=== PATIENT | male | born 1955 | race Caucasian/White ===

== ENCOUNTER → 2017-09-24 | Outpatient (CLI) | payer OTHER ==
[~2017-09-24] MED LIST: ASPI-320 PO; CMD5 PO; DIPH25CA5 PO; DVN80 PO; LOSA1TAB PO; SIMV10TA2 PO; SIMV10TA5 PO; WARF5TAB7 PO
[2017-09-24 14:45] LABS: INR 1.4 (0.9-1.1)
== END | disposition home or self-care (01) ==
LOC: C.LAB1850 13:37
PROVIDERS: ATTEND Internal Medicine
DX: I25.10 Atherosclerotic heart disease of native coronary artery without angina pectoris (principal)

== ENCOUNTER → 2017-10-21 | Outpatient (CLI) | payer OTHER ==
[~2017-10-21] MED LIST changes: +ASPEC81 PO; -ASPI-320 PO; -CMD5 PO; -DVN80 PO; -SIMV10TA2 PO
[2017-10-21 10:51] LABS: INR 1.2 (0.9-1.1)
== END | disposition home or self-care (01) ==
LOC: C.LAB1850 09:09
PROVIDERS: ATTEND Internal Medicine
DX: I82.4Z9 Acute embolism and thrombosis of unspecified deep veins of unspecified distal lower extremity (principal)

== ENCOUNTER 2021-04-24 12:07 | Inpatient (IN) ==
[2021-04-24] MEDS ORDERED: TICAGRELOR 90 MG TAB PO ONE ×2 (12:15→12:16)
[2021-04-24] MEDS ORDERED: HEPARIN SOD (PORCINE) 1000 UNIT/ML IV ONE (12:15)
[2021-04-24] MEDS ORDERED: HEPARIN SOD (PORCINE) 1000 UNIT/ML ONE ×2 (12:16)
[2021-04-24] MEDS ORDERED: CLOPIDOGREL BISULFATE 300 MG TAB ONE (12:18)
[2021-04-24] MEDS ORDERED: SODIUM CHLORIDE 0.9% 1000ML 500 ML IV ONE (12:20)
[2021-04-24] MEDS ORDERED: HEPARIN (PORCINE) 1000 UNIT/ML 10 ML (CATH LAB USE ONLY) ONE (12:24)
[2021-04-24] MEDS ORDERED: niCARdipine HCL INJ 2.5 MG/ML 10 ML AMP ONE (12:24)
[2021-04-24] MEDS ORDERED: fentaNYL citrate 100 MCG/2 ML VIAL ONE (12:24)
[2021-04-24] MEDS ORDERED: MIDAZOLAM HCL 1 MG/ML 2ML VIAL ONE (12:24)
[2021-04-24] MEDS ORDERED: NITROGLYCERIN/D5W 100MCG/ML 20ML SYR ONE (12:25)
[2021-04-24 12:28] LABS: Basophils # (auto) 0.02 K/uL (0-0.2); Basophils % (auto) 0.2 %; Eosinophils # (auto) 0.23 K/uL (0-0.5); Eosinophils % (auto) 2.3 %; Hematocrit (blood only) 48.2 % (42-52); Hemoglobin 16.5 g/dL (14.0-18.0); Immature Granulocytes # (auto) 0.02 K/uL (0.00-0.02); Immature Granulocytes % (auto) 0.2 %; Lymphocytes % (auto) 42.5 %; Mean Corpuscular Hemoglobin 34.2 pg (25-34); Mean Corpuscular Hgb Conc 34.2 g/dL (32-36); Mean Corpuscular Volume 99.8 fL (80-100); Mean Platelet Volume 9.8 fL (7.4-10.4); Monocytes # (auto) 0.93 K/uL (0.11-0.59); Monocytes % (auto) 9.4 %; Neutrophils # (auto) 4.48 K/uL (1.4-6.5); Neutrophils % (auto) 45.4 %; Platelet Count 293 K/uL (130-400); RDW Coefficient of Variation 13.6 % (11.5-14.5); Red Blood Count 4.83 M/uL (4.7-6.1); White Blood Count 9.88 K/uL (4.8-10.8)
[2021-04-24] MEDS ORDERED: ONDANSETRON INJ 2 MG/ML 2 ML VIAL ONE (12:30)
--- NOTE | 2021-04-24 12:30 | XRay Report ---
XR chest 1V portable HISTORY: 66 years-old Male Chest Pain acute atypical chest pain COMPARISON: Chest radiograph 12/14/2015 TECHNIQUE: Portable AP view of the chest FINDINGS: Cardiac silhouette is enlarged. Pulmonary vascular congestion with reticular interstitial opacities. No pneumothorax or large pleural effusion. Degenerative changes of the shoulders and spine. IMPRESSION: Cardiomegaly with pulmonary vascular congestion. ACT 112: Negative or not required by law. The above report was generated using voice recognition software. It may contain grammatical, syntax o r spelling errors. Electronically signed by: Harman Rhodes M.D. 04/24/2021 12:29 PM
[2021-04-24] MEDS ORDERED: NOREPINEPHRINE BITARTRATE 1 MG/ML 4 ML VIAL IV ONE (12:36)
[2021-04-24 12:39] LABS: INR 2.1 (0.9-1.1); Partial Thromboplastin Ratio 1.1; Partial Thromboplastin Time 29.9 Seconds (21.0-31.0); Prothrombin Time 20.3 Seconds (9.0-12.0)
--- NOTE | 2021-04-24 12:40 | Emergency Department Note ---
Impression & Plan Acute ST elevation myocardial infarction (STEMI) of inferior wall, Chest pain ED Provider Note NAME: SALENA THORNTON AGE: 66 SEX: M : 1955 ARRIVES VIA: Ambulance INFORMANT: Patient, ED PROVIDER(S): Trevon Moise DO CHIEF COMPLAINT: Chest pain HPI: The patient is a 66-year-old male who presented to the emergency department for an evaluation of chest pain. The patient arrived via ambulance. I received a prehospital notification about this patient. The patient was made a heart alert prior to arrival. The patient states he was having chest pain while he was on the elliptical machine at the gym. The chest pain was anterior and also on the right side. He describes as a pressure. The pain was associated with diaphoresis and shortness of breath. The patient was given aspirin and nitroglycerin prior to arrival. The patient states his pain is mildly improved. He rates it a 5 out of 10 at this point. He did have a similar episode last evening. He states that episode did not last very long and resolved spontaneously. The patient denies having any nausea or vomiting. He denies having any lower extremity swelling. He does have a history of DVT approximately 10 years ago. He does take Coumadin. He states he has been compliant with his outpatient medication regimen. He did not have a cardiac history but has a strong family history. He did have a cardiac catheterization about 10 years ago but had no culprit lesion that required stenting. ROS: See above HPI for pertinent positives & negatives. A total of 10 systems reviewed and were otherwise negative. PAST MEDICAL HISTORY: See Below PAST SURGICAL HISTORY: See Below FAMILY HISTORY: See Below SOCIAL HISTORY: See Below HOME MEDICATIONS: See Below ALLERGIES: See Below VITALS: See Below PHYSICAL EXAMINATION: GENERAL: The patient is awake and alert. The patient is very anxious appearing and appears to be uncomfortable. EYES: The conjunctivae are clear. The pupils are round and reactive. EARS, NOSE, MOUTH AND THROAT: The nose is without any evidence of any deformity. NECK: The neck is nontender and supple. RESPIRATORY: Diminished breath sounds are noted at both bases. There were faint rales at both bases. CARDIOVASCULAR: Regular rate and rhythm noted there no murmurs rubs or gallops normal S1 normal S2. GASTROINTESTINAL: The abdomen is soft. Abdomen is nontender. MUSCULOSKELETAL/EXTREMITIES: There is no evidence of gross deformity full range of motion is noted in the hips and shoulders. SKIN: Trace pedal edema was noted bilaterally. Skin was cool and diaphoretic. NEUROLOGIC: Patient is awake alert and oriented x3. MEDICAL DECISION MAKING: The patient is a 66-year-old male who presented to the emergency department by ambulance for an evaluation of chest pain. The patient was exercising when he had an acute onset of chest pain. He was very diaphoretic upon arrival to the emergency department. EKG appeared to be consistent with an acute inferior wall ST segment elevation DE. The patient was made a heart alert prior to arrival. He was taken directly to the [facility] [facility]. He was treated with heparin in the emergency department. He was given aspirin and nitroglycerin prior to arrival. Upon evaluation by the sheet tailer the patient was felt to be a candidate for interventional therapy. He was also ordered Plavix by the sheet tailer. He was reevaluated multiple times. Pain significantly proved while he was in the emergency department but continued to be present. Triage Nursing notes reviewed. Prior medical records reviewed Vital Signs: reviewed and remarkable for elevated blood pressure Differential diagnosis: Cardiac ischemia, aortic dissection, pulmonary embolism, pneumothorax, pneumonia, pericarditis, myocarditis, esophageal rupture, GERD, cholecystitis, pancreatitis, musculoskeletal, as well as other pathologies. ER treatment provided: See below Diagnostics interpreted by me: ECG: EKG was obtained in the emergency department. My interpretation is normal sinus rhythm at 82 bpm. There were no ectopy. Acute ST segment elevations were noted in the inferior and low lateral leads. Reciprocal changes were noted in the high lateral leads. This was compared to a tracing from December [id number]. The ST segment changes are new compared to the previous tracing. A prehospital EKG was also evaluated. My interpretation is normal sinus rhythm at 79 bpm. There is no ectopy. Acute ST segment elevations were noted in the inferior and low lateral leads. Reciprocal changes were noted in the high lateral leads. Cardiac Monitoring: An order was placed for continuous cardiac monitoring. The monitor shows a rate of 73 bpm with sinus rhythm. Laboratory studies: As stated above and show below. Imaging studies: See below Consultation(s): Dr. Salazar presented to the emergency department to evaluate the patient for the heart alert. The patient was given heparin bolus as well as Plavix load at the request of the sheet tailer. ED COURSE: Procedures: none PDMP:reviewed and no issues Critical Care: I have personally spent greater than 35 minutes of critical care time in the direct management of this patient. This includes bedside care, interpretation of diagnostic studies, and testing, discussion with consultants, patient, and family members, and other required patient management activities. This 35 minutes is in excess of all separately billable procedures. Past Med/Surg History Medical History CAD (coronary artery disease) Cerebral atherosclerosis Depression DVT (deep venous thrombosis) APPROX 5 YEARS AGO, POSSIBLY R/T TRAVELING Dysmetabolic syndrome X Hyperlipidemia Hypertension Insomnia Obesity Surgical History (Updated 04/24/21 @ 13:56 by Evans Ortiz MD) H/O wisdom tooth extraction History of cardiac cath History of total knee replacement B/L Family History Grandmother Cancer Father Acute myocardial infarction Hypertension Mother Acute myocardial infarction Brother Hypertension Other Myocardial infarction Denies family history of Ovarian cancer Prostate cancer Breast cancer Colorectal cancer Social History Smoking Status: Current every day smoker Tobacco Type: Cigars Cigarettes Per Day: 1 CIGAR PER DAY; Second Hand Exposure: No; Hx Alcohol Use: Yes Alcohol type: other Hx Substance Use: No Preferred Language: Bengali Communication Ability: Effective Cinder Block Maker Required: No Beliefs That Will Affect Care: None Current Living Situation: Spouse Feels Safe at Home: Yes Safety Concerns: Feels Safe At This Time Dental Care, Regularly: No Physical Activity Frequency: 1-2 Times per Week Seatbelt Use: always Assistive Devices: Glasses and Hearing Aid - Bilateral Allergies Allergies Allergy/AdvReac Type Severity Reaction Status Date / Time Sulfa (Sulfonamide Allergy Mild ?RX, WAS Verified 04/19/21 08:56 Antibiotics) TOLD CHILD Home Meds Previous Rx's Medication Instructions Recorded olmesartan 20 mg tablet 20 mg PO DAILY #30 tab 04/19/21 semaglutide (Ozempic) 0.25 mg SUBCUT ONCE #1.5 ml 04/19/21 simvastatin 20 mg tablet 20 mg PO HS #90 tab 04/19/21 tamsulosin 0.4 mg capsule (Flomax) 0.4 mg PO DAILY #30 cap 04/19/21 warfarin 5 mg tablet 5 mg PO DAILY #35 tab 04/19/21 Results & Data (ED) Vital Signs Vital Signs - 24 hr 04/24/21 12:10 04/24/21 12:21 04/24/21 12:25 Temperature 36.9 C Temperature Source Oral Pulse Rate 79 Pulse Rate [Apical] 80 Pulse Rhythm [Apical] Pulse Strength [Apical] Respiratory Rate 16 16 Respiratory Effort / Characteristics Respiratory Depth Respiratory Pattern Blood Pressure 109/65 Blood Pressure [Left Arm] 102/56 L Blood Pressure Mean 79 Blood Pressure Mean [Left Arm] 71 Blood Pressure Position [Left Arm] Pulse Oximetry 98 99 98 Oxygen Delivery Method Room Air Nasal Cannula Nasal Cannula Oxygen Flow Rate 2 2 Sepsis Recent Fever Within 48 Hours No Sepsis New/Unexplained Change in Mental Status N/A Sepsis Action Taken by Nursing No Action Required 04/24/21 13:04 04/24/21 13:15 04/24/21 13:30 Temperature Temperature Source Pulse Rate Pulse Rate [Apical] 82 80 86 Pulse Rhythm [Apical] Regular Regular Regular Pulse Strength [Apical] Normal Normal Normal Respiratory Rate 16 16 16 Respiratory Effort / Characteristics Non-Labored Non-Labored Non-Labored Respiratory Depth Normal Normal Normal Respiratory Pattern Regular Regular Regular Blood Pressure Blood Pressure [Left Arm] 119/92 127/89 114/74 Blood Pressure Mean Blood Pressure Mean [Left Arm] 101 101 87 Blood Pressure Position [Left Arm] Lying Lying Lying Pulse Oximetry 98 99 98 Oxygen Delivery Method Room Air Room Air Room Air Oxygen Flow Rate Sepsis Recent Fever Within 48 Hours Sepsis New/Unexplained Change in Mental Status Sepsis Action Taken by [facility] Medications Current Medication List: was personally reviewed by me Laboratory Data Attestation: I reviewed the patient's lab results. Result diagrams: 04/24/21 12:16 04/24/21 12:16 Lab Results 04/24/21 04/24/21 04/24/21 Range/Units 12:16 12:16 12:16 WBC 9.88 (4.8-10.8) K/uL RBC 4.83 (4.7-6.1) M/uL Hgb 16.5 (14.0-18.0) g/dL Hct 48.2 (42-52) % MCV 99.8 (80-100) fL MCH 34.2 H (25-34) pg MCHC 34.2 (32-36) g/dL RDW Std Deviation 50.0 H (36.4-46.3) fL RDW Coeff of Karely 13.6 (11.5-14.5) % Plt Count 293 (130-400) K/uL MPV 9.8 (7.4-10.4) fL Immature Gran % (Auto) 0.2 % Neut % (Auto) 45.4 % Lymph % (Auto) 42.5 % Bartholomew % (Auto) 9.4 % Eos % (Auto) 2.3 % Baso % (Auto) 0.2 % Neut # (Auto) 4.48 (1.4-6.5) K/uL Lymph # (Auto) 4.20 H (1.2-3.4) K/uL Bartholomew # (Auto) 0.93 H (0.11-0.59) K/uL Eos # (Auto) 0.23 (0-0.5) K/uL Baso # (Auto) 0.02 (0-0.2) K/uL Immature Gran # (Auto) 0.02 (0.00-0.02) K/uL PT 20.3 H (9.0-12.0) Seconds INR 2.1 H (0.9-1.1) APTT 29.9 (21.0-31.0) Seconds PTT Ratio 1.1 Sodium 138 (136-145) mmol/L Potassium 3.9 (3.5-5.1) mmol/L Chloride 108 H (98-107) mmol/L Carbon Dioxide 21 (21-32) mmol/L Anion Gap 9.0 (3-11) BUN 23 H (7-18) mg/dl Creatinine 1.20 (0.6-1.4) mg/dl Est Cr Clr Drug Dosing 82.8 ml/min Est GFR ( Amer) 71.6 ml/min Est GFR (Non-Af Amer) 61.8 ml/min BUN/Creatinine Ratio 19.4 (10-20) Glucose 141 H (70-99) mg/dl Calcium 9.6 (8.5-10.1) mg/dl Total Bilirubin 0.6 (0.2-1) mg/dl AST 28 (15-37) U/L ALT 32 (12-78) U/L Alkaline Phosphatase 82 (45-117) U/L Troponin I 0.756 H* (0-0.045) ng/ml Total Protein 7.2 (6.4-8.2) gm/dl Albumin 3.3 L (3.4-5.0) gm/dl Globulin 3.9 (2.5-4.0) gm/dl Albumin/Globulin Ratio 0.8 L (0.9-2) Lipase 122 (73-393) U/L COVID-19 Eval Order SARS-CoV-2 (PCR) (Negative) 04/24/21 04/24/21 Range/Units 12:16 12:16 WBC (4.8-10.8) K/uL RBC (4.7-6.1) M/uL Hgb (14.0-18.0) g/dL Hct (42-52) % MCV (80-100) fL MCH (25-34) pg MCHC (32-36) g/dL RDW Std Deviation (36.4-46.3) fL RDW Coeff of Karely (11.5-14.5) % Plt Count (130-400) K/uL MPV (7.4-10.4) fL Immature Gran % (Auto) % Neut % (Auto) % Lymph % (Auto) % Bartholomew % (Auto) % Eos % (Auto) % Baso % (Auto) % Neut # (Auto) (1.4-6.5) K/uL Lymph # (Auto) (1.2-3.4) K/uL Bartholomew # (Auto) (0.11-0.59) K/uL Eos # (Auto) (0-0.5) K/uL Baso # (Auto) (0-0.2) K/uL Immature Gran # (Auto) (0.00-0.02) K/uL PT (9.0-12.0) Seconds INR (0.9-1.1) APTT (21.0-31.0) Seconds PTT Ratio Sodium (136-145) mmol/L Potassium (3.5-5.1) mmol/L Chloride (98-107) mmol/L Carbon Dioxide (21-32) mmol/L Anion Gap (3-11) BUN (7-18) mg/dl Creatinine (0.6-1.4) mg/dl Est Cr Clr Drug Dosing ml/min Est GFR ( Amer) ml/min Est GFR (Non-Af Amer) ml/min BUN/Creatinine Ratio (10-20) Glucose (70-99) mg/dl Calcium (8.5-10.1) mg/dl Total Bilirubin (0.2-1) mg/dl AST (15-37) U/L ALT (12-78) U/L Alkaline Phosphatase (45-117) U/L Troponin I (0-0.045) ng/ml Total Protein (6.4-8.2) gm/dl Albumin (3.4-5.0) gm/dl Globulin (2.5-4.0) gm/dl Albumin/Globulin Ratio (0.9-2) Lipase (73-393) U/L COVID-19 Eval Order Covid19 at [facility] SARS-CoV-2 (PCR) NEGATIVE (Negative) Administered Medications Sodium Chloride (Nss 1000ml) 1,000 mls @ 75 mls/hr IV .[id number] [facility] Stop: 05/24/21 13:44 Last Admin: 04/24/21 16:23 Dose: 75 mls/hr Documented by: [id number] Discontinued Medications Atropine Sulfate (Atropine Sulfate 0.1 Mg/Ml 10ml Syr) Confirm Administered Dose 1 mg IV .STK-MED ONE Stop: 04/24/21 12:43 Last Admin: 04/24/21 13:21 Dose: Not Given Documented by: [id number] Clopidogrel Bisulfate (Clopidogrel Bisulfate 300 Mg Tab) Confirm Administered Dose 600 mg .ROUTE .STK-MED ONE Stop: 04/24/21 12:19 Last Admin: 04/24/21 12:19 Dose: 600 mg Documented by: [id number] Eptifibatide (Eptifibatide 2 Mg/Ml 10 Ml Vial ([employer] Use Only)) Confirm Administered Dose 40 mg IV .STK-MED ONE Stop: 04/24/21 12:53 Last Admin: 04/24/21 13:23 Dose: 11.3 ml Documented by: [id number] Eptifibatide (Eptifibatide 0.75 Mg/Ml 75mg Vial ([employer] Use Only)) Confirm Administered Dose 75 mg .ROUTE .STK-MED ONE Stop: 04/24/21 12:53 Last Admin: 04/24/21 13:23 Dose: Not Given Documented by: [id number] Fentanyl Citrate (Fentanyl Citrate 100 Mcg/2 Ml Vial) Confirm Administered Dose 100 mcg .ROUTE .STK-MED ONE Stop: 04/24/21 12:25 Last Admin: 04/24/21 13:20 Dose: Not Given Documented by: [id number] Heparin Sodium (Porcine) (Heparin Sod (Porcine) 1000 Unit/Ml) Confirm Administered Dose 1,000 units .ROUTE .STK-MED ONE Stop: 04/24/21 12:17 Last Admin: 04/24/21 13:24 Dose: Not Given Documented by: [id number] Heparin Sodium (Porcine) (Heparin Sod (Porcine) 1000 Unit/Ml) 5,000 units IV NOW ONE Stop: 04/24/21 12:16 Last Admin: 04/24/21 13:24 Dose: Not Given Documented by: [id number] Heparin Sodium (Porcine) (Heparin Sod (Porcine) 1000 Unit/Ml) Confirm Administered Dose 1,000 units .ROUTE .ST-MED ONE Stop: 04/24/21 12:17 Last Admin: 04/24/21 13:24 Dose: Not Given Documented by: [id number] Heparin Sodium (Porcine) (Heparin (Porcine) 1000 Unit/Ml 10 Ml ([employer] Use Only)) Confirm Administered Dose 10,000 units .ROUTE .ST-MED ONE Stop: 04/24/21 12:25 Last Admin: 04/24/21 13:24 Dose: Not Given Documented by: [id number] Heparin Sodium/Sodium Chloride (Heparin In Nss Infusion 1000 Unit/500 Ml (2 U/Ml) Bag) Confirm Administered Dose 3,000 units IV .ST-MED ONE Stop: 04/24/21 12:26 Last Admin: 04/24/21 13:23 Dose: 3,000 units Documented by: [id number] Sodium Chloride (Nss 1000ml) 500 mls @ 999 mls/hr IV .Q31M ONE Stop: 04/24/21 12:50 Last Admin: 04/24/21 16:23 Dose: Not Given Documented by: [id number] Lidocaine HCl (Lidocaine 2% 20 Mg/Ml 5 Ml Syr) Confirm Administered Dose 100 mg IV .STK-MED ONE Stop: 04/24/21 12:45 Last Admin: 04/24/21 13:21 Dose: 100 mg Documented by: [id number] Midazolam HCl (Midazolam Hcl 1 Mg/Ml 2ml Vial) Confirm Administered Dose 2 mg .ROUTE .STK-MED ONE Stop: 04/24/21 12:25 Last Admin: 04/24/21 13:20 Dose: Not Given Documented by: [id number] Nicardipine HCl (Nicardipine Hcl Inj 2.5 Mg/Ml 10 Ml Amp) Confirm Administered Dose 25 mg .ROUTE .[employer] ONE Stop: 04/24/21 12:25 Last Admin: 04/24/21 13:20 Dose: Not Given Documented by: [id number] Nitroglycerin/Dextrose (Nitroglycerin/D5w 100mcg/Ml 20ml Syr) Confirm Administered Dose 2,000 mcg .ROUTE .[employer] ONE Stop: 04/24/21 12:26 Last Admin: 04/24/21 13:23 Dose: Not Given Documented by: [id number] Norepinephrine Bitartrate (Norepinephrine Bitartrate 1 Mg/Ml 4 Ml Vial) Confirm Administered Dose 8 mg IV .[facility] ONE Stop: 04/24/21 12:37 Last Admin: 04/24/21 16:23 Dose: Not Given Documented by: [id number] Ondansetron HCl (Ondansetron Inj 2 Mg/Ml 2 Ml Vial) Confirm Administered Dose 4 mg .ROUTE .[facility] ONE Stop: 04/24/21 12:31 Last Admin: 04/24/21 13:20 Dose: 4 mg Documented by: [id number] Ticagrelor (Ticagrelor 90 Mg Tab) Confirm Administered Dose 180 mg PO .[facility] ONE Stop: 04/24/21 12:16 Last Admin: 04/24/21 12:17 Dose: Not Given Documented by: [id number] Ticagrelor (Ticagrelor 90 Mg Tab) Confirm Administered Dose 180 mg PO .[facility] ONE Stop: 04/24/21 12:17 Last Admin: 04/24/21 12:19 Dose: Not Given Documented by: [id number] Imaging Data Radiologist's Impression: Chest X-Ray 04/24/21 12:10 XR chest 1V portable HISTORY: 66 years-old Male Chest Pain acute atypical chest pain COMPARISON: Chest radiograph 12/14/2015 TECHNIQUE: Portable AP view of the chest FINDINGS: Cardiac silhouette is enlarged. Pulmonary vascular congestion with reticular interstitial opacities. No pneumothorax or large pleural effusion. Degenerative changes of the shoulders and spine. IMPRESSION: Cardiomegaly with pulmonary vascular congestion. ACT 112: Negative or not required by law. The above report was generated using voice recognition software. It may contain grammatical, syntax or spelling errors. Electronically signed by: Harman Rhodes M.D. 04/24/2021 12:29 PM Discharge Plan Visit Data Chief Complaint: Heart Alert ED Provider: Trevon Moise Discharge Problem: Acute ST elevation myocardial infarction (STEMI) of inferior wall, Chest pain Patient Disposition: Admitted As Inpatient Condition: Good Discharge Instructions Interventions: ED Discharge Assessment Last Done: 04/24/21 12:31 Discharge Problem: Chest pain Qualifiers: Chest pain type: unspecified Qualified Code(s): R07.9 - Chest pain, unspecified
--- NOTE | 2021-04-24 12:41 | Cardiology Consultation ---
Date of Consultation April 24, 2021 Assessment & Plan (1) ST elevation (STEMI) myocardial infarction: (2) CAD (coronary artery disease): (3) Hypertension: (4) Hyperlipidemia: (5) Anticoagulant long-term use: ASSESSMENT/PLAN: 1. STEMI: Suspect RCA STEMI based on ECG findings. Recommended emergent cardiac catheterization. Risks and benefits were discussed with him in detail. He was agreeable to undergo the procedure. Recommended Plavix 600 mg daily as he is also on warfarin. Discussed heparin but held off as INR was not yet resulted. Did not administer further nitroglycerin given hypotension after first dose. Will initiate oral beta-elizabeth if blood pressure allows. On ARB. Recommend echo. 2. CAD: CAD noted in 2009. Recommend anti-platelet therapy. Recommend high- dose statin therapy in place of simvastatin. Beta-elizabeth as noted. Continue ARB. 3. Hypertension: Blood pressure was hypotensive following nitroglycerin. If blood pressure allows, will initiate beta-elizabeth during this hospital stay. 4. Dyslipidemia: LDL not optimized. Recommend atorvastatin [address] of simvastatin. 5. Anticoagulation therapy: On anticoagulation therapy as per his PCP. He is on anticoagulation therapy for recurrent DVT. 6. Disposition: Cardiology will follow along. Recommended emergent cardiac catheterization. Patient care discussed with emergency department physician, Dr. Moise. Presentation/patient care also discussed with interventional card iologist. 40 minutes of critical care time spent including counseling patient, coordinating care, assistance in managing acute STEMI, chart review. Thank you for allowing me to participate in the care of your patient. Please call for any other questions or concerns. Sincerely, Giovanny Salazar M.D. History of Present Illness Reason for Consultation: Heart Alert Requesting Physician: Jose Maria Attending Physician: Jose Maria History of Present Illness Mr. Fagan is a pleasant 66-year-old gentleman with history significant for CAD, hypertension, dyslipidemia, and DVT on anticoagulation therapy. He has had the following studies/procedures: 1. Cardiac catheterization 10/13/2009 [facility]: Proximal LAD 30%. Mid LAD 30% and 20%. Distal circumflex 100%. OM 2 ostial 50-60%. Dominant RCA. Mid RCA minor irregularity. Medical therapy recommended. On 04/23/2021, he developed an episode of chest discomfort that resolved spontaneously within approximately 10-15 minutes. Then while exercising this morning, he developed chest discomfort just right of the sternum with associated diaphoresis and shortness of breath. EMS administered aspirin and nitroglycerin which improved his pain to approximately level 4 of 10. ECG demonstrated inferolateral ST elevation with sinus rhythm. After nitroglycerin, his blood pressure became hypotensive with systolic in the 90s. Code heart alert was initiated pre hospital. He was examined in the emergency department immediately after arrival. He continued to have chest discomfort as above. He continued to feel short of breath with diaphoresis. He denied nausea (but apparently developed nausea after interview), vomiting, syncope, or palpitations. He denies melena, hematochezia, or hematuria. He has not had pain like this in the past. He recalled having cardiac catheterization many years ago as noted above, but did not recall any significant stenosis. He does not follow with Cardiology on a regular basis but has been seen in the office many years ago by another provider. Review of systems: As above. Review of systems otherwise negative/unremarkable. Family history: Not assessed in this emergent situation. Social history: Smokes cigars. Lives alone. Has 1 son who lives out of state. Allergies Allergy/AdvReac Type Severity Reaction Status Date / Time Sulfa (Sulfonamide Allergy Mild ?RX, WAS Verified 04/19/21 08:56 Antibiotics) TOLD CHILD Home Medications Medication Instructions Recorded Confirmed Type olmesartan 20 mg tablet 20 mg PO DAILY #30 tab 04/19/21 04/19/21 Rx semaglutide (Ozempic) 0.25 mg SUBCUT ONCE #1.5 ml 04/19/21 04/19/21 Rx simvastatin 20 mg tablet 20 mg PO HS #90 tab 04/19/21 04/19/21 Rx tamsulosin 0.4 mg capsule (Flomax) 0.4 mg PO DAILY #30 cap 04/19/21 04/19/21 Rx warfarin 5 mg tablet 5 mg PO DAILY #35 tab 04/19/21 04/19/21 Rx Patient History Medical History CAD (coronary artery disease) Cerebral atherosclerosis Depression DVT (deep venous thrombosis) APPROX 5 YEARS AGO, POSSIBLY R/T TRAVELING Dysmetabolic syndrome X Hyperlipidemia Hypertension Insomnia Obesity Surgical History H/O wisdom tooth extraction History of cardiac cath History of total knee replacement B/L Family History Grandmother Cancer Father Acute myocardial infarction Hypertension Mother Acute myocardial infarction Brother Hypertension Other Myocardial infarction Denies family history of Ovarian cancer Prostate cancer Breast cancer Colorectal cancer Social History Smoking Status: Light tobacco smoker Tobacco Type: Cigars Cigarettes Per Day: 1 CIGAR PER DAY; Second Hand Exposure: No; Hx Alcohol Use: Yes Alcohol type: other Hx Substance Use: No Preferred Language: Spanish Communication Ability: Effective Clothing Consultant Required: No Beliefs That Will Affect Care: None Current Living Situation: Spouse Feels Safe at Home: Yes Dental Care, Regularly: No Physical Activity Frequency: 1-2 Times per Week Seatbelt Use: always Assistive Devices: Glasses and Hearing Aid - Bilateral Physical Exam Physical Exam: Gen.: Diaphoretic. Alert and oriented. HEENT: Anicteric sclera. Neck: Thick neck. Cardiac: PMI was nonpalpable. No ventricular heave. Regular. Normal S1-S2. No murmurs, rubs, or gallops. Pulmonary: Clear to auscultation bilaterally without wheezes, rales, or rhonchi. Abdomen: Soft, nontender, nondistended, with normoactive bowel sounds. No bruits noted. Extremities: 1+ radial pulses bilaterally. 1+ posterior tibialis pulses bilaterally. No edema or cyanosis. Results & Data ([facility]) Vital Signs (Past 12 Hours) Vital Signs Temp Pulse Pulse Resp BP BP Pulse Ox 04/24/21 12:25 98 04/24/21 12:21 80 16 102/56 L 99 04/24/21 12:10 36.9 C 79 16 109/65 98 Laboratory Results Laboratory Results - last 24 hr 04/24/21 04/24/21 04/24/21 12:16 12:16 12:16 WBC 9.88 RBC 4.83 Hgb 16.5 Hct 48.2 MCV 99.8 MCH 34.2 H MCHC 34.2 RDW Std Deviation 50.0 H RDW Coeff of Kare[place] 13.6 Plt Count 293 MPV 9.8 Immature Gran % (Auto) 0.2 Neut % (Auto) 45.4 Lymph % (Auto) 42.5 [place] % (Auto) 9.4 Eos % (Auto) 2.3 Baso % (Auto) 0.2 Neut # (Auto) 4.48 Lymph # (Auto) 4.20 H [place] # (Auto) 0.93 H Eos # (Auto) 0.23 Baso # (Auto) 0.02 Immature Gran # (Auto) 0.02 PT 20.3 H INR 2.1 H APTT 29.9 PTT Ratio 1.1 Sodium 138 Potassium 3.9 Chloride 108 H Carbon Dioxide 21 Anion Gap 9.0 BUN 23 H Creatinine 1.20 Est Cr Clr Drug Dosing 82.8 Est GFR ( Amer) 71.6 Est GFR (Non-Af Amer) 61.8 BUN/Creatinine Ratio 19.4 Glucose 141 H Calcium 9.6 Total Bilirubin 0.6 AST 28 ALT 32 Alkaline Phosphatase 82 Troponin I 0.756 H* Total Protein 7.2 Albumin 3.3 L Globulin 3.9 Albumin/Globulin Ratio 0.8 L Lipase 122 COVID-19 Eval Order SARS-CoV-2 (PCR) 04/24/21 04/24/21 12:16 12:16 WBC RBC Hgb Hct MCV MCH MCHC RDW Std Deviation RDW Coeff of Kare[place] Plt Count MPV Immature Gran % (Auto) Neut % (Auto) Lymph % (Auto) [place] % (Auto) Eos % (Auto) Baso % (Auto) Neut # (Auto) Lymph # (Auto) [place] # (Auto) Eos # (Auto) Baso # (Auto) Immature Gran # (Auto) PT INR APTT PTT Ratio Sodium Potassium Chloride Carbon Dioxide Anion Gap BUN Creatinine Est Cr Clr Drug Dosing Est GFR ( Amer) Est GFR (Non-Af Amer) BUN/Creatinine Ratio Glucose Calcium Total Bilirubin AST ALT Alkaline Phosphatase Troponin I Total Protein Albumin Globulin Albumin/Globulin Ratio Lipase COVID-19 Eval Order Covid19 [address] [facility] SARS-CoV-2 (PCR) Pending Diagnostic Findings ECG personally reviewed as noted above in HPI demonstrated sinus rhythm with inferolateral ST elevation. Previous cardiac catheterization report reviewed as noted above in HPI. Medications Administered Received full-dose aspirin pre-hospital. Receive nitroglycerin pre-hospital. PG Care Time/CCT Total # of Minutes Spent Total Time Spent with Patient: Total time spent is greater than 50% in c oordination of care (as documented) at patient's floor/unit and/or counseling patient: Critical Care Time: Yes Total Critical Care Time: 40 Coding Level of Care Code None Diagnoses CAD (coronary artery disease) I25.10 ST elevation (STEMI) myocardial infarction I21.3 Hypertension I10 Hyperlipidemia E78.5 Anticoagulant long-term use Z79.01 Additional Codes Critical Care Time - Critical Care Time: Yes ([id number]) Time Spent (min) 40 Comment [id number]
[2021-04-24] MEDS ORDERED: ATROPINE SULFATE 0.1 MG/ML 10ML SYR IV ONE (12:42)
[2021-04-24] MEDS ORDERED: LIDOCAINE 2% 20 MG/ML 5 ML SYR IV ONE (12:44)
[2021-04-24 12:45] LABS: Albumin Level 3.3 gm/dl (3.4-5.0); BUN Creatinine Ratio 19.4 (10-20); Calcium 9.6 mg/dl (8.5-10.1); Creatinine Clr Calc Pharmacy 82.8 ml/min; Est GFR (African American) 71.6 ml/min; Est GFR (Non-African American) 61.8 ml/min; Potassium 3.9 mmol/L (3.5-5.1)
[2021-04-24] MEDS ORDERED: EPTIFIBATIDE 2 MG/ML 10 ML VIAL (CATH LAB USE ONLY) IV ONE (12:52)
[2021-04-24] MEDS ORDERED: EPTIFIBATIDE 0.75 MG/ML 75MG VIAL (CATH LAB USE ONLY) ONE (12:52)
[2021-04-24 12:59] LABS: Albumin Globulin Ratio 0.8 (0.9-2); Bilirubin,Total 0.6 mg/dl (0.2-1); Globulin 3.9 gm/dl (2.5-4.0); Total Protein 7.2 gm/dl (6.4-8.2); Troponin I 0.756 ng/ml (0-0.045)
[2021-04-24] MEDS ORDERED: ICU PROTOCOL FOR HYPERGLYCEMIA PRN (13:42)
--- NOTE | 2021-04-24 13:42 | Cardiac Catheterization ---
[facility] Data: [employer] Cardiac Status Clinical evaluation leading to the procedure CAD Presenation: STEMI Diagnostic Physicians Name: Davon Elizabeth MD Closure Device Recommendations: PCI without planned CABG Cardiac Cath Procedure Full Procedure Date April 24, 2021 Pre-Procedure Diagnosis Pre-Procedure Diagnosis: STEMI AUC Score AUC Score: 9 Post-Procedure Diagnosis Post-Procedure Diagnosis: Severe CAD and Successful PCI Procedure(s) Performed Procedure(s) Performed: Left Heart Cath and Drug Eluting Stent Real Estate Marketing Coordinator Davon Elizabeth MD Estimated Blood Loss Estimated Blood Loss: 10 cc Summary of Findings Emergent cardiac catheterization Emergent percutaneous intervention of the right coronary artery Indication: ST elevation myocardial infarction Referring physician Dr. Salazar Patient was brought to the cardiac [employer] emergently and prepped and draped in sterile fashion 6 Cypriot sheath was secured into the right radial artery Diagnostic catheterization and selective coronary graft was performed with a 6 Cypriot JL 3.5 and JR4 diagnostic catheter Hemodynamics was performed and 6 Cypriot pigtail catheter Open aortic pressure was 80/45/57 Closing aortic pressure is 120/82/94 Left ventricle 118/9/29 Findings RCA is occluded at the proximal portion. The left main is of normal caliber without stenosis it bifurcates into the LAD and the circumflex There is a chronic total occlusion of the midportion of the circumflex with retrograde filling of the distal circumflex from the LAD the proximal to mid and distal LAD has mild luminal irregularities The 2 diagonal branches are free of disease The LAD is a small caliber vessel Intervention A 6 Cypriot JR4 guide was used to engage the RCA A run-through wire was used to successfully wire the RCA Balloon angioplasty of the proximal RCA lesion was performed using a 3.0 x 12 noncompliant balloon A 4.0 x 18 mm drug-eluting stent was then positioned and deployed to high pressures and then postdilated using a 5.0 x 12 mm noncompliant balloon SHARON-3 flow was restored however a near thrombotic occlusion was visualized in the distal RCA for which direct stenting was achieved using a 5.0 x 12.2 drug- eluting stent 2 orthogonal shots without the wire crossed showed appropriate stent apposition no loss of branches or dissections Post procedure TR band was used secure hemostasis Throughout the procedure Heparin was given to achieve therapeutic ACT Given the thrombus burden, and adjuvant Zofran IV GP to be 3 inhibitor was also administered A loading dose of clopidogrel was also given Patient was then transferred to the holding area in improved condition with near complete resolution of the ST elevation on the EKG tracing Conclusion Acute inferior wall DC; successful PCI of the proximal and distal RCA Chronic total occlusion of left circumflex Recommendations Given that the patient is on Coumadin for another indication, will recommend aspirin 81 mg daily chewable, Plavix 75 mg daily along with the Coumadin for 1 month. After 1 month aspirin should be discontinued and Plavix and Coumadin continued Beta-elizabeth High intensity statin AVERY inhibitor if tolerable Cardiac rehab will also be of tremendous benefit to this individual It is a pleasure and honor to have participate in the care of your patient Respectfully Davon Elizabeth MD, [facility] Hemodynamics Rest Ao:: 80/45 Final Ao: 120/82/94 LV: 118/9/29 Recommendations Recommendations: PCI without planned CABG Radiation Exposure (mGy) 1179 mGy Contrast (mls) 95 Procedural Complication(s) None I attest to the content of the Intraoperative Record and any orders documented therein. Any exceptions are noted below. PG Care Time/CCT Total # of Minutes Spent Total Time Spent with Patient: Total time spent is greater than 50% in coordination of care (as documented) at patient's floor/unit and/or counseling patient:
--- NOTE | 2021-04-24 13:56 | Critical Care Consultation ---
Date of Consultation April 24, 2021 Assessment & Plan (1) ST elevation (STEMI) myocardial infarction: Reason Critically Ill: 66 y/o male smoker w/ PMHx of CAD and strong family hx of OK who presents w/ STEMI and is s/p PCI w/ DESx2 placement in the proximal and distal RCA, now admitted to the ICU. NEURO - [facility] ICU: negative CARDIAC - STEMI - cath findings in data section - s/p DESx2 as above - Initial ECG 04/24/21 12:10. Rate of 82. Prominent ST elevations in inferolateral leads. - post PCI ecg w/ resolved ST-T changes - echo pending - medication recommendations per cardiology: baby ASA+Plavix 75 daily+Coumadin x 1 month, Plavix+Coumadin thereafter - Beta-elizabeth - High intensity statin - AVERY inhibitor if tolerable - cardiac rehab recommended coronary artery disease - findings and medication changes as per above hypertension - beta elizabeth as above, was not on prior anti hypertensive therapy prior to admission hyperlipidemia -high intensity statin as above RESP - saturating well on room air and in no respiratory distress GI - - heart healthy diet - Protonix 40 mg PO BID because on multiple anticoagulants/antiplatelets RENAL/LYTES - - follow BMPs, replete electrolytes as needed, Mg goal >2, K goal >4 - - monitor Is/Os ENDO - - continue home Ozempic for weight loss - check A1C in AM HEME - - stable, follow CBC dvt x2 (~2012 and 2019) - reviewed records. 1st episode was DVT in R thigh, unprovoked, but patient did endorse long car trips - 2nd episode was below R knee and while patient was on Coumadin. INR that day was 3.9, but patient had not checked his INR in over 6 months - prior INRs in 2019 were 1.2, 1.2 1.9. It is possible that patient had been subtherapeutic for prolonged period, developed DVT, and presented sy mptomatically later - considered whether INR goal range could use adjusting, but in light of above, existing goal range may be appropriate - patient had been in discussion w/ PCP about DOACs given poor compliance in INR checks. He will revisit this ID - - no infectious concerns at this time - covid negative. patient is s/p Pfizer immunization x2 in December 2020 INTEGUMENTARY - - radial site appropriate and without erythema LINES/IV ACCESS - peripheral IV ANTICOAGULATION - restarting home warfarin 5mg DISPO continue ICU care (2) Postsurgical percutaneous transluminal coronary angioplasty (PTCA) status: (3) S/P drug eluting coronary stent placement: (4) Hypertension: (5) Hyperlipidemia: (6) Anticoagulant long-term use: Supervising Physician Co-Signing Physician Notes Dr. Ortiz was the resident-physician during care of patient. I separately evaluated patient for dunaway portions of the history and the exam. I was present during the critical portion of medical decision making, and I discussed the case with the resident. I generally agree with the findings and plan except for any additions/exceptions noted. 66-year-old male past medical history of DVT x2 last one being 1 and half years ago on chronic warfarin, edema, hypertension presented to the ED with chest pain she was found to have STEMI in the inferior lateral leads. He was taken to Chief Revenue Officer and 2 stents were placed in the proximal RCA Social history: Smokes 2 cigars on a daily basis, social alcohol, denies any illicit drug use. Patient seen and examined at bedside. At the time of examination patient denied any complaints with breathing. His chest pain was resolved. Denied any nausea or vomiting, no diaphoresis. Saturating well on room air. Patient had an EKG done while I was examining him. It still showed resolution o f the ST elevations. Constitutional: No acute distress HEENT: EOMI, PERRLA Respiratory system: Good air entry bilaterally, no wheeze, no rhonchi, no crackles CVS: S1-S2 positive, no murmurs or gallops Abdomen: Soft, nontender, nondistended, positive bowel sounds x4 Extremities: +2 pulses bilaterally radialis/ dorsalis pedis, no cyanosis, no edema, obese Neuro: Awake alert oriented x3 Psych: Normal mood and affect G/U: No [place] Plan: Continue with dual antiplatelet therapy along with warfarin I will add PPI to the regimen Patient most likely has sleep apnea as well Outpatient polysomnography will be beneficial for the patient Continue blood pressure medication Follow-up 2D echo Please note the above document was generated using voice recognition software. It may contain grammatical, syntax or spelling errors.Any formal questions or concerns about the content, text or information contained within the body of this dictation should be directly addressed to the provider for clarification. History of Present Illness Reason for Consultation: STEMI s/p TOOL AND CUTTER GRINDER Requesting Physician: Dr. Moreno Attending Physician: Dr. 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 Patient first had a diagnostic cardiac cath in 2009 for the family history and at the time medical therapy was recommended. From approximately [id number] patient had right mid chest tightness that would come at rest and resolve on its own within 10 minutes. There were no associated symptoms such as SOB, headache, N/V, or numbness/tingling. No radiation and not exertional. The episodes would occur rarely and did not reoccur after 2016. For the past 3 days, patient 2-3 episodes had similar chest tightness that occurred at rest. He also noted slightly more SOB and dyspnea on exertion than usual. This morning, patient was at the gym on and elliptical and had an episode that was exertional. He sat down and the pain resolved, but he became diaphoretic. Patient then started lifting weights and the pain returned w/ higher severity and did not resolve, so he called EMS. Nitro and aspirin provided by EMS provided some relief. Patient is a smoker, 1-2 cigars/day. He quit cigarettes 13 years ago and had a 10-15 pack year hx prior. Allergies Allergy/AdvReac Type Severity Reaction Status Date / Time Sulfa (Sulfonamide Allergy Mild ?RX, WAS Verified 04/19/21 08:56 Antibiotics) TOLD CHILD Home Medications Medication Instructions Recorded Confirmed Type olmesartan 20 mg tablet 20 mg PO DAILY #30 tab 04/19/21 04/19/21 Rx semaglutide (Ozempic) 0.25 mg SUBCUT ONCE #1.5 ml 04/19/21 04/19/21 Rx simvastatin 20 mg tablet 20 mg PO HS #90 tab 04/19/21 04/19/21 Rx tamsulosin 0.4 mg capsule (Flomax) 0.4 mg PO DAILY #30 cap 04/19/21 04/19/21 Rx warfarin 5 mg tablet 5 mg PO DAILY #35 tab 04/19/21 04/19/21 Rx Patient History Medical History CAD (coronary artery disease) Cerebral atherosclerosis Depression DVT (deep venous thrombosis) APPROX 5 YEARS AGO, POSSIBLY R/T TRAVELING Dysmetabolic syndrome X Hyperlipidemia Hypertension Insomnia Obesity Surgical History (Updated 04/24/21 @ 13:56 by Evans Ortiz MD) H/O wisdom tooth extraction History of cardiac cath History of total knee replacement B/L Family History Grandmother Cancer Father Acute myocardial infarction Hypertension Mother Acute myocardial infarction Brother Hypertension Other Myocardial infarction Denies family history of Ovarian cancer Prostate cancer Breast cancer Colorectal cancer Social History Smoking Status: Current every day smoker Tobacco Type: Cigars Cigarettes Per Day: 1 CIGAR PER DAY; Second Hand Exposure: No; Hx Alcohol Use: Yes Alcohol type: other Hx Substance Use: No Preferred Language: Croatian Communication Ability: Effective Assignment Agent Required: No Beliefs That Will Affect Care: None Current Living Situation: Spouse Feels Safe at Home: Yes Safety Concerns: Feels Safe At This Time Dental Care, Regularly: No Physical Activity Frequency: 1-2 Times per Week Seatbelt Use: always Assistive Devices: Glasses and Hearing Aid - Bilateral Review of Systems Review of Systems: Constitutional: Denies fever, chills. diaphoresis from prior to admission resolved Eyes: + mild blurry vision (prior to admission) ENT: Denies sore throat, sinus pain Cardiovascular: Denies palpitations. + chest pain as per HPI, since resolved Respiratory: See HPI. SOB resoled. Gastrointestinal: Denies abdominal pain, nausea, vomiting, constipation, diarrhea Genitourinary: Denies urinary symptoms including dysuria Musculoskeletal: Denies weakness, muscle aches/pain, joint aches/pain Neurological: Denies headache, focal weakness Physical Exam Physical Exam: General: A&Ox4. NAD. Cooperative. Obese habitus. HEENT: Atraumatic, normocephalic. Chronic hard of hearing. EOMI. PERRL. Pulm: CTAB anteriorly. -wheezes, -rales, -rhonchi. Symmetrical chest rise. No respiratory distress. Cardiac: RRR, -mrg. Trace bilateral lower extremity edema. Abdominal: Nontender, nondistended, soft. Musculoskeletal: No reproducible chest wall tenderness. Integumentary: No erythema at ventral wrists. Mild dermatitis (chronic) at L dorsal hand. Results & Data Results & Data ([facility]) Vital Signs (Past 12 Hours) Vital Signs Temp Pulse Pulse Resp BP BP Pulse Ox 04/24/21 13:30 86 16 114/74 98 04/24/21 13:15 80 16 127/89 99 04/24/21 13:04 82 16 119/92 98 04/24/21 12:25 98 04/24/21 12:21 80 16 102/56 L 99 04/24/21 12:10 36.9 C 79 16 109/65 98 04/24/21 12:16 04/24/21 12:16 Diagnostic Findings Laboratory Results WBC 9.88 K/uL (4.8-10.8) 04/24/21 12:16 RBC 4.83 M/uL (4.7-6.1) 04/24/21 12:16 Hgb 16.5 g/dL (14.0-18.0) 04/24/21 12:16 Hct 48.2 % (42-52) 04/24/21 12:16 MCV 99.8 fL (80-100) 04/24/21 12:16 MCH 34.2 pg (25-34) H 04/24/21 12:16 MCHC 34.2 g/dL (32-36) 04/24/21 12:16 RDW Std Deviation 50.0 fL (36.4-46.3) H 04/24/21 12:16 RDW Coeff of Karely 13.6 % (11.5-14.5) 04/24/21 12:16 Plt Count 293 K/uL (130-400) 04/24/21 12:16 MPV 9.8 fL (7.4-10.4) 04/24/21 12:16 Immature Gran % (Auto) 0.2 % 04/24/21 12:16 Neut % (Auto) 45.4 % 04/24/21 12:16 Lymph % (Auto) 42.5 % 04/24/21 12:16 [place] % (Auto) 9.4 % 04/24/21 12:16 Eos % (Auto) 2.3 % 04/24/21 12:16 Baso % (Auto) 0.2 % 04/24/21 12:16 Neut # (Auto) 4.48 K/uL (1.4-6.5) 04/24/21 12:16 Lymph # (Auto) 4.20 K/uL (1.2-3.4) H 04/24/21 12:16 [place] # (Auto) 0.93 K/uL (0.11-0.59) H 04/24/21 12:16 Eos # (Auto) 0.23 K/uL (0-0.5) 04/24/21 12:16 Baso # (Auto) 0.02 K/uL (0-0.2) 04/24/21 12:16 Immature Gran # (Auto) 0.02 K/uL (0.00-0.02) 04/24/21 12:16 PT 20.3 Seconds (9.0-12.0) H 04/24/21 12:16 INR 2.1 (0.9-1.1) H 04/24/21 12:16 APTT 29.9 Seconds (21.0-31.0) 04/24/21 12:16 PTT Ratio 1.1 04/24/21 12:16 Sodium 138 mmol/L (136-145) 04/24/21 12:16 Potassium 3.9 mmol/L (3.5-5.1) 04/24/21 12:16 Chloride 108 mmol/L (98-107) H 04/24/21 12:16 Carbon Dioxide 21 mmol/L (21-32) 04/24/21 12:16 Anion Gap 9.0 (3-11) 04/24/21 12:16 BUN 23 mg/dl (7-18) H 04/24/21 12:16 Creatinine 1.20 mg/dl (0.6-1.4) 04/24/21 12:16 Est Cr Clr Drug Dosing 82.8 ml/min 04/24/21 12:16 Est GFR ( Amer) 71.6 ml/min 04/24/21 12:16 Est GFR (Non-Af Amer) 61.8 ml/min 04/24/21 12:16 BUN/Creatinine Ratio 19.4 (10-20) 04/24/21 12:16 Glucose 141 mg/dl (70-99) H 04/24/21 12:16 Calcium 9.6 mg/dl (8.5-10.1) 04/24/21 12:16 Total Bilirubin 0.6 mg/dl (0.2-1) 04/24/21 12:16 AST 28 U/L (15-37) 04/24/21 12:16 ALT 32 U/L (12-78) 04/24/21 12:16 Alkaline Phosphatase 82 U/L (45-117) 04/24/21 12:16 Troponin I 0.756 ng/ml (0-0.045) H* 04/24/21 12:16 Total Protein 7.2 gm/dl (6.4-8.2) 04/24/21 12:16 Albumin 3.3 gm/dl (3.4-5.0) L 04/24/21 12:16 Globulin 3.9 gm/dl (2.5-4.0) 04/24/21 12:16 Albumin/Globulin Ratio 0.8 (0.9-2) L 04/24/21 12:16 Lipase 122 U/L (73-393) 04/24/21 12:16 COVID-19 Eval Order Covid19 at [facility] 04/24/21 12:16 SARS-CoV-2 (PCR) NEGATIVE (Negative) 04/24/21 12:16 Impressions Chest X-Ray 04/24/21 12:10 XR chest 1V portable HISTORY: 66 years-old Male Chest Pain acute atypical chest pain COMPARISON: Chest radiograph 12/14/2015 TECHNIQUE: Portable AP view of the chest FINDINGS: Cardiac silhouette is enlarged. Pulmonary vascular congestion with reticular interstitial opacities. No pneumothorax or large pleural effusion. Degenerative changes of the shoulders and spine. IMPRESSION: Cardiomegaly with pulmonary vascular congestion. ACT 112: Negative or not required by law. The above report was generated using voice recognition software. It may contain grammatical, syntax or spelling errors. Electronically signed by: Harman Rhodes M.D. 04/24/2021 12:29 PM 04/24/21 cardiac cath RCA is occluded at the proximal portion. The left main is of normal caliber without stenosis it bifurcates into the LAD and the circumflex There is a chronic total occlusion of the midportion of the circumflex with retrograde filling of the distal circumflex from the LAD the proximal to mid and distal LAD has mild luminal irregularities The 2 diagonal branches are free of disease The LAD is a small caliber vessel Resident Activity Tracking Resident Involvement: Resident Care Provided Care Provided: Adult Hospital Medicine (1) ST elevation (STEMI) myocardial infarction Involved coronary artery: right coronary artery Qualified Code(s): I21.11 - ST elevation (STEMI) myocardial infarction involving right coronary artery
[2021-04-24] MEDS: SODIUM CHLORIDE 0.9% 1000ML 1,000 ML IV SCH (16:23)
[2021-04-24] MEDS ORDERED: lisinopril 2.5 MG TAB PO ONE (19:45)
[2021-04-24] MEDS ORDERED: CALCIUM CARBONATE 500 MG CHEWABLE TAB PO ONE (20:10)
[2021-04-24] MEDS: PANTOprazole 40 MG TAB PO SCH (20:32)
[2021-04-24] MEDS: WARFARIN SOD 5 MG TAB PO SCH (20:33)
[2021-04-24] MEDS: METOPROLOL SUCC 25MG EXT REL TAB PO SCH (20:34)
[2021-04-24] MEDS ORDERED: LABETALOL HCL IV 5 MG/ML 20ML IV ONE (21:30)
[2021-04-24] MEDS: LABETALOL HCL IV 5 MG/ML 20ML IV STA ×2 (21:34→21:37)
[2021-04-25] MEDS ORDERED: MELATONIN 3 MG TAB PO STA (01:31)
[2021-04-25] MEDS ORDERED: MELATONIN 3 MG TAB PO ONE (01:39)
--- NOTE | 2021-04-25 01:46 | History & Physical Report ---
Date of Service April 25, 2021 Assessment & Plan (1) Acute ST elevation myocardial infarction (STEMI) of inferior wall: Plan: Acute STEMI involving inferior wall/status post drug-eluting coronary stent placement today/PTCA/CAD/hypertension- Postprocedure regimen per cardiology (2) S/P drug eluting coronary stent placement: Plan: See above (3) Postsurgical percutaneous transluminal coronary angioplasty (PTCA) status: Plan: See above (4) CAD (coronary artery disease): Plan: See above (5) Hypertension: Plan: See above (6) Hyperlipidemia: Plan: Taking simvastatin 20 mg at bedtime. Recommend change to high-dose statin, atorvastatin 80 mg daily Check a fasting lipid panel (7) DVT (deep venous thrombosis): Plan: DVT/long-term use of warfarin- INR therapeutic upon admission, continue current dose of warfarin (8) terminal makeup operator current use of anticoagulants with INR goal of 2.0-3.0: Plan: See above (9) Admitted to intensive care unit: Plan: Admitted to intensive care unit with consult to harness brusher Dr. Mg, cardiology and interventional cardiology (10) Diabetes mellitus: Plan: Hold semaglutide. Placed in Accu-Cheks before meals and at bedtime with NovoLog coverage per scale Checking hemoglobin A1c (11) Insomnia: Plan: Add melatonin 3 mg at bedtime as needed Admission and Anticipated Discharge Date Admission Date: April 24, 2021 History of Present Illness Chief Complaint: The patient presented to the emergency department via ambulance for assessment of chest pain, having been made a heart alert prior to arrival. Primary Care Provider: Trevon Vega MD The patient is a 66-year-old male with a past medical history including hypertension, diabetes mellitus, hyperlipidemia, BPH with LUTS, generalized osteoarthritis of multiple sites, long-term use of anticoagulants, history of DVT. He presented to the emergency department as a heart alert, due to the development of anterior and right-sided chest pain, shortness of breath and diaphoresis that occurred while on an elliptical at the gym. He did receive aspirin nitroglycerin in route to the hospital, reported that had improved his symptoms mildly. He reports having similar chest pain the previous evening, but it did not last as long and resolved spontaneously. He presently takes warfarin for a DVT which occurred about 10 years ago. Patient was taken emergently from the emergency department to the cardiac Electronic Funds Transfer Coordinator, and then was admitted to the ICU for ongoing care Allergies Allergy/AdvReac Type Severity Reaction Status Date / Time Sulfa (Sulfonamide Allergy Mild ?RX, WAS Verified 04/19/21 08:56 Antibiotics) TOLD CHILD Home Medications Medication Instructions Recorded Confirmed Type olmesartan 20 mg tablet 20 mg PO DAILY #30 tab 04/19/21 04/19/21 Rx semaglutide (Ozempic) 0.25 mg SUBCUT ONCE #1.5 ml 04/19/21 04/19/21 Rx simvastatin 20 mg tablet 20 mg PO HS #90 tab 04/19/21 04/19/21 Rx tamsulosin 0.4 mg capsule (Flomax) 0.4 mg PO DAILY #30 cap 04/19/21 04/19/21 Rx warfarin 5 mg tablet 5 mg PO DAILY #35 tab 04/19/21 04/19/21 Rx Past Med/Surg History Medical History (Updated 04/25/21 @ 04:43 by Trevon Cruz MD) CAD (coronary artery disease) Cerebral atherosclerosis Depression Diabetes mellitus DVT (deep venous thrombosis) APPROX 5 YEARS AGO, POSSIBLY R/T TRAVELING Dysmetabolic syndrome X Hyperlipidemia Hypertension Insomnia Obesity Surgical History (Updated 04/24/21 @ 13:56 by Evans Ortiz MD) H/O wisdom tooth extraction History of cardiac cath History of total knee replacement B/L Family History Grandmother Cancer Father Acute myocardial infarction Hypertension Mother Acute myocardial infarction Brother Hypertension Other Myocardial infarction Denies family history of Ovarian cancer Prostate cancer Breast cancer Colorectal cancer Social History Smoking Status: Current every day smoker Tobacco Type: Cigars Cigarettes Per Day: 1 CIGAR PER DAY; Second Hand Exposure: No; Hx Alcohol Use: Yes Alcohol type: other Hx Substance Use: No Preferred Language: Citizen [place] Communication Ability: Effective Veneer Cutter Required: No Beliefs That Will Affect Care: None Current Living Situation: Spouse Feels Safe at Home: Yes Safety Concerns: Feels Safe At This Time Dental Care, Regularly: No Physical Activity Frequency: 1-2 Times per Week Seatbelt Use: always Assistive Devices: Glasses Review of Systems Review of Systems: Seen post procedure, the patient denies chest pain, palpitations, shortness of breath, dyspnea on exertion, cough, lower extremity swelling, sore throat, fevers, chills, sweats, nausea, vomiting, diarrhea , constipation, abdominal pain, pelvic pain, blood in urine or stool, dysuria, urinary frequency or urgency, lightheadedness, dizziness, headache, memory loss, loss of consciousness, rash, abnormal bruising or bleeding, imbalance, focal weakness, numbness or tingling in arms or legs, generalized arthralgias or myalgias, back or neck pain, or night sweats. He does report insomnia as a chronic issue. The review of systems is otherwise negative other than for that already noted above, and at least 10 systems have been reviewed. Physical Exam Physical Exam: The patient is awake, alert and oriented 3, well developed and well nourished, normocephalic and atraumatic, lying in bed and in no acute distress. HEENT--PERRL, EOMI, mucous membranes and oropharynx normal. Neck--supple. No JVD. No bruits. Thyroid normal, trachea midline, no adenopathy. Heart--normal S1 and S2. No murmurs, rubs or gallops. Lungs--clear bilaterally, no respiratory distress, no accessory muscle use. Abdomen--normal bowel sounds and soft. Nontender. Nondistended. Morbidly obese Extremities--no cyanosis or clubbing. No edema. There are good distal pulses b/l. Dermatologic--normal skin turgor, normal color, no abnormal lymph nodes, no rash. Neurologic--cranial nerves II through XII grossly intact. Rheumatologic--normal range of motion. Psychiatric--normal affect. Results & Data Results & Data ([facility]) Vital Signs (Past 12 Hours) Vital Signs Temp Pulse Pulse Resp BP BP Pulse Ox 04/25/21 00:01 98.6 F 70 25 H 123/74 94 04/24/21 23:18 76 21 97 04/24/21 23:09 83 04/24/21 22:31 98.6 F 78 26 H 137/91 96 04/24/21 22:01 75 118/65 96 04/24/21 21:01 78 16 170/106 H 92 04/24/21 20:31 78 13 186/135 H 97 04/24/21 20:01 75 31 H 172/113 H 96 04/24/21 19:31 98.2 F 70 17 126/98 95 04/24/21 19:01 74 26 H 155/102 H 93 04/24/21 17:01 73 12 144/103 H 94 04/24/21 16:46 77 18 122/86 94 04/24/21 16:31 77 16 129/83 96 04/24/21 16:17 69 25 H 168/114 H 95 04/24/21 16:01 77 13 145/100 H 95 04/24/21 15:46 78 23 143/95 H 96 04/24/21 15:31 92 H 18 135/79 94 04/24/21 15:16 82 16 113/98 97 04/24/21 15:00 85 24 121/89 95 04/24/21 14:46 89 18 106/70 98 04/24/21 14:30 79 18 115/71 97 04/24/21 14:15 81 12 113/80 96 04/24/21 14:14 95 H 19 113/80 96 04/24/21 14:01 94 H 16 113/57 L 94 Laboratory Results Laboratory Results WBC 9.88 K/uL (4.8-10.8) 04/24/21 12:16 RBC 4.83 M/uL (4.7-6.1) 04/24/21 12:16 Hgb 16.5 g/dL (14.0-18.0) 04/24/21 12:16 Hct 48.2 % (42-52) 04/24/21 12:16 MCV 99.8 fL (80-100) 04/24/21 12:16 MCH 34.2 pg (25-34) H 04/24/21 12:16 MCHC 34.2 g/dL (32-36) 04/24/21 12:16 RDW Std Deviation 50.0 fL (36.4-46.3) H 04/24/21 12:16 RDW Coeff of Karely 13.6 % (11.5-14.5) 04/24/21 12:16 Plt Count 293 K/uL (130-400) 04/24/21 12:16 MPV 9.8 fL (7.4-10.4) 04/24/21 12:16 Immature Gran % (Auto) 0.2 % 04/24/21 12:16 Neut % (Auto) 45.4 % 04/24/21 12:16 Lymph % (Auto) 42.5 % 04/24/21 12:16 [place] % (Auto) 9.4 % 04/24/21 12:16 Eos % (Auto) 2.3 % 04/24/21 12:16 Baso % (Auto) 0.2 % 04/24/21 12:16 Neut # (Auto) 4.48 K/uL (1.4-6.5) 04/24/21 12:16 Lymph # (Auto) 4.20 K/uL (1.2-3.4) H 04/24/21 12:16 [place] # (Auto) 0.93 K/uL (0.11-0.59) H 04/24/21 12:16 Eos # (Auto) 0.23 K/uL (0-0.5) 04/24/21 12:16 Baso # (Auto) 0.02 K/uL (0-0.2) 04/24/21 12:16 Immature Gran # (Auto) 0.02 K/uL (0.00-0.02) 04/24/21 12:16 PT 20.3 Seconds (9.0-12.0) H 04/24/21 12:16 INR 2.1 (0.9-1.1) H 04/24/21 12:16 APTT 29.9 Seconds (21.0-31.0) 04/24/21 12:16 PTT Ratio 1.1 04/24/21 12:16 Sodium 138 mmol/L (136-145) 04/24/21 12:16 Potassium 3.9 mmol/L (3.5-5.1) 04/24/21 12:16 Chloride 108 mmol/L (98-107) H 04/24/21 12:16 Carbon Dioxide 21 mmol/L (21-32) 04/24/21 12:16 Anion Gap 9.0 (3-11) 04/24/21 12:16 BUN 23 mg/dl (7-18) H 04/24/21 12:16 Creatinine 1.20 mg/dl (0.6-1.4) 04/24/21 12:16 Est Cr Clr Drug Dosing 82.8 ml/min 04/24/21 12:16 Est GFR ( Amer) 71.6 ml/min 04/24/21 12:16 Est GFR (Non-Af Amer) 61.8 ml/min 04/24/21 12:16 BUN/Creatinine Ratio 19.4 (10-20) 04/24/21 12:16 Glucose 141 mg/dl (70-99) H 04/24/21 12:16 POC Glucose 116 mg/dl (70-99) H 04/25/21 01:36 Calcium 9.6 mg/dl (8.5-10.1) 04/24/21 12:16 Total Bilirubin 0.6 mg/dl (0.2-1) 04/24/21 12:16 AST 28 U/L (15-37) 04/24/21 12:16 ALT 32 U/L (12-78) 04/24/21 12:16 Alkaline Phosphatase 82 U/L (45-117) 04/24/21 12:16 Troponin I 161.000 ng/ml (0-0.045) H* 04/24/21 22:59 Total Protein 7.2 gm/dl (6.4-8.2) 04/24/21 12:16 Albumin 3.3 gm/dl (3.4-5.0) L 04/24/21 12:16 Globulin 3.9 gm/dl (2.5-4.0) 04/24/21 12:16 Albumin/Globulin Ratio 0.8 (0.9-2) L 04/24/21 12:16 Lipase 122 U/L (73-393) 04/24/21 12:16 Nasal Screen MRSA (PCR) Negative (Negative) 04/24/21 20:50 COVID-19 Eval Order Covid19 at [facility] 04/24/21 12:16 SARS-CoV-2 (PCR) NEGATIVE (Negative) 04/24/21 12:16 Impressions Chest X-Ray 04/24/21 12:10 XR chest 1V portable HISTORY: 66 years-old Male Chest Pain acute atypical chest pain COMPARISON: Chest radiograph 12/14/2015 TECHNIQUE: Portable AP view of the chest FINDINGS: Cardiac silhouette is enlarged. Pulmonary vascular congestion with reticular interstitial opacities. No pneumothorax or large pleural effusion. Degenerative changes of the shoulders and spine. IMPRESSION: Cardiomegaly with pulmonary vascular congestion. ACT 112: Negative or not required by law. The above report was generated using voice recognition software. It may contain grammatical, syntax or spelling errors. Electronically signed by: Harman Rhodes M.D. 04/24/2021 12:29 PM Code Status & VTE Plan Code Status Full code VTE Prophylaxis Plan VTE Prophylaxis will be ordered: Yes PG Care Time/CCT Total # of Minutes Spent Total Time Spent with Patient: Total time spent is greater than 50% in coordination of care (as documented) at patient's floor/unit and/or counseling patient: Coding Level of Care Code 36939 Initial Inpt Care Lvl [address] elevation myocardial infarction (STEMI) of inferior wall I21.19 S/P drug eluting coronary stent placement Z95.5 Postsurgical percutaneous transluminal coronary angioplasty (PTCA) status Z98.61 CAD (coronary artery disease) I25.10 Insomnia G47.00 Hyperlipidemia E78.5 Hypertension I10 shelter current use of anticoagulants with INR goal of 2.0-3.0 Z79.01 DVT (deep venous thrombosis) I82.409 Admitted to intensive care unit Z78.9 Diabetes mellitus E11.9
[2021-04-25] MEDS: SODIUM CHLORIDE 0.9% 1000ML 1,000 ML IV SCH ×2 (03:53→16:18)
[2021-04-25 04:54] LABS: Basophils # (auto) 0.02 K/uL (0-0.2); Basophils % (auto) 0.2 %; Eosinophils # (auto) 0.07 K/uL (0-0.5); Eosinophils % (auto) 0.7 %; Hemoglobin 15.4 g/dL (14.0-18.0); Immature Granulocytes # (auto) 0.02 K/uL (0.00-0.02); Immature Granulocytes % (auto) 0.2 %; Lymphocytes # (auto) 1.95 K/uL (1.2-3.4); Lymphocytes % (auto) 19.8 %; Mean Corpuscular Hemoglobin 33.7 pg (25-34); Mean Corpuscular Hgb Conc 33.5 g/dL (32-36); Mean Corpuscular Volume 100.7 fL (80-100); Mean Platelet Volume 9.5 fL (7.4-10.4); Monocytes # (auto) 0.73 K/uL (0.11-0.59); Monocytes % (auto) 7.4 %; Neutrophils # (auto) 7.04 K/uL (1.4-6.5); Neutrophils % (auto) 71.7 %; Platelet Count 244 K/uL (130-400); RDW Coefficient of Variation 13.6 % (11.5-14.5); Red Blood Count 4.57 M/uL (4.7-6.1); White Blood Count 9.83 K/uL (4.8-10.8)
[2021-04-25 05:05] LABS: INR 2.2 (0.9-1.1); Prothrombin Time 20.9 Seconds (9.0-12.0)
[2021-04-25 05:48] LABS: BUN Creatinine Ratio 21.3 (10-20); Calcium 8.7 mg/dl (8.5-10.1); Creatinine Clr Calc Pharmacy 114.1 ml/min; Est GFR (African American) 103.3 ml/min; Est GFR (Non-African American) 89.1 ml/min; Magnesium 1.6 mg/dl (1.8-2.4); Potassium 4.4 mmol/L (3.5-5.1)
[2021-04-25 06:08] LABS: Phosphorus 2.7 mg/dl (2.5-4.9)
[2021-04-25] MEDS: MAGNESIUM SULFATE / D5W 1 GM/100 ML BAG IV SCH ×2 (06:16→08:30)
--- NOTE | 2021-04-25 08:05 | Critical Care Progress Note ---
Date of Service April 25, 2021 Assessment & Plan (1) ST elevation (STEMI) myocardial infarction: Plan: Reason Critically Ill: 66 y/o male smoker w/ PMHx of CAD, DVTx2 on warfarin, and strong family hx of NM who presents w/ STEMI and is s/p PCI w/ DESx2 placement in the proximal and distal RCA, admitted to ICU on 04/24/21. NEURO - [facility] ICU: negative CARDIAC - STEMI - cath findings in data section - s/p DESx2 as above - Initial ECG 04/24/21 12:10. Rate of 82. Prominent ST elevations in inferolateral leads. - post PCI ecg as well as 04/25 ecg w/ resolved ST-T changes. inferior lead q waves. - echo pending - medication recommendations per cardiology: baby ASA+Plavix 75 daily+Coumadin x 1 month, Plavix+Coumadin thereafter - Beta-elizabeth - High intensity statin - AVERY inhibitor if tolerable - cardiac rehab as outpatient coronary artery disease - findings and medication changes as per above hypertension - beta elizabeth as above, was not on prior anti hypertensive therapy prior to admission hypotension - soft BPs in AM 85/60. held home metoprolol and lisinopril. provided 500cc NNS bolus hyperlipidemia - high intensity statin as above RESP - no respiratory distress - consider outpatient sleep study for possible RADU - continue counseling on cessation of cigars as outpatient GI - - heart healthy diet - Protonix 40 mg PO BID because on multiple anticoagulants/antiplatelets RENAL/LYTES - - Mg 1.6, repleted w/ 1g IV Mg sulfate - follow BMPs, replete electrolytes as needed, Mg goal >2, K goal >4 - - cumulative Is/Os since 04/24/21: 2.1L in 1.6L out - monitor Is/Os ENDO - - continue home Ozempic for weight loss - check A1C in AM HEME - - stable, follow CBC dvt x2 (~2012 and 2019) - reviewed records. 1st episode was DVT in R thigh, unprovoked, but patient did endorse long car trips - 2nd episode was below R knee and while patient was on Coumadin. INR that day was 3.9, but patient had not checked his INR in over 6 months - prior INRs in 2019 were 1.2, 1.2 1.9. It is possible that patient had been subtherapeutic for prolonged period, developed DVT, and presented symptomatically later - considered whether INR goal range could use adjusting, but in light of above, existing goal range may be appropriate - patient had been in discussion w/ PCP about DOACs given poor compliance in INR checks. He will revisit this ID - - no infectious concerns at this time - covid negative. patient is s/p Pfizer immunization x2 in December 2020 INTEGUMENTARY - - PIV sites w/o erythema LINES/IV ACCESS - peripheral IV ANTICOAGULATION - continue home warfarin 5mg. INR 2.2 DISPO stable for downgrade from ICU (2) Postsurgical percutaneous transluminal coronary angioplasty (PTCA) status: (3) S/P drug eluting coronary stent placement: (4) Hypertension: (5) Hyperlipidemia: (6) Anticoagulant long-term use: (7) skilled nursing current use of anticoagulants with INR goal of 2.0-3.0: (8) Tobacco use disorder: Admission and Anticipated Discharge Date Admission Date: April 24, 2021 Supervising Physician Co-Signing Physician Notes Dr. Ortiz was the resident-physician during care of patient. I separately evaluated patient for dunaway portions of the history and the exam. I was present during the critical portion of medical decision making, and I discussed the case with the resident. I generally agree with the findings and plan except for any additions/exceptions noted. 66-year-old male past medical history of DVT x2 last one being 1 and half years ago on chronic warfarin, edema, hypertension presented to the ED with chest pain she was found to have STEMI in the inferior lateral leads. He was taken to [facility] and 2 stents were placed in the proximal RCA Social history: Smokes 2 cigars on a daily basis, used to be a pack a smoker day quit approximately 20 years ago social alcohol, denies any illicit drug use. Patient seen and examined at bedside. Patient had overnight some discomfort of the chest He did not need any medication it resolved on its own At the time of examination denied any chest pain, no nausea or vomiting. He just had his breakfast. Fair appetite. Denies any dizziness. Constitutional: No acute distress HEENT: EOMI, PERRLA, hard of hearing Respiratory system: Good air entry bilaterally, no wheeze, no rhonchi, no crac kles CVS: S1-S2 positive, no murmurs or gallops Abdomen: Soft, nontender, nondistended, positive bowel sounds x4 Extremities: +2 pulses bilaterally radialis/ dorsalis pedis, no cyanosis, no edema, obese Neuro: Awake alert oriented x3 Psych: Normal mood and affect G/U: No [place] --Prophylaxis VTE: Warfarin GI: Protonix Lines: Peripheral Diet: Cardiac Plan: In/out: +2.5 m, urine output 1200 mL Patient blood pressure today is running on the lower side. He is asymptomatic. H&H stable Even had labs in the ICU without any significant dizziness or any other complaints. I will give him final mL bolus of normal saline Hold blood pressure medication for today. Echo was done yesterday but not read yet. Please note the above document was generated using voice recognition software. It may contain grammatical, syntax or spelling errors.Any formal questions or concerns about the content, text or information contained within the body of this dictation should be directly addressed to the provider for clarification. Subjective Patient had mild discomfort at right chest described as an irritation overnight. It is described as a poking sensation and felt different from the STEMI chest pain. It has since resolved after 3 hours. No nausea/vomiting. He also had some discomfort at his right forearm, since improved. Eating and urinating normally. No BM, but + flatus. Review of Systems Review of Systems: As per HPI. Denies other complaints. No fever/chills, SOB, abdominal pain, or headache. Physical Exam Physical Exam: General: Grossly A&O. NAD. Cooperative. Conversive. Obese habitus. HEENT: Atraumatic, normocephalic. Chronic hard of hearing. Pulm: No wheezing. Noisy expirations. Prolonged exp phase. No respiratory distress. Cardiac: RRR, -mrg. 1-2+ BLE Abdominal: Nontender, nondistended, soft. Integumentary: Wearing compression stockings. No erythema at IV site. L antecubital site has some ecchymosis at proximal end. Results & Data Results & Data ([facility]) Vital Signs (Past 12 Hours) Vital Signs Temp Pulse Resp BP Pulse Ox 04/25/21 06:01 68 23 125/74 93 04/25/21 05:01 68 19 97 04/25/21 04:01 68 22 125/91 95 04/25/21 03:31 36.8 C 68 22 114/76 98 04/25/21 03:01 69 27 H 143/97 H 95 04/25/21 02:01 68 26 H 117/77 96 04/25/21 01:01 70 25 H 130/88 97 04/25/21 00:01 37 C 70 25 H 123/74 94 04/24/21 23:18 76 21 97 04/24/21 23:09 83 04/24/21 22:31 37 C 78 26 H 137/91 96 04/24/21 22:01 75 118/65 96 04/24/21 21:01 78 16 170/106 H 92 04/24/21 20:31 78 13 186/135 H 97 04/25/21 04:30 04/25/21 04:30 Laboratory Results Abnormal lab results 04/24/21 04/24/21 04/24/21 Range/Units 12:16 12:16 12:16 RBC (4.7-6.1) M/uL MCV (80-100) fL MCH 34.2 H (25-34) pg RDW Std Deviation 50.0 H (36.4-46.3) fL Neut # (Auto) (1.4-6.5) K/uL Lymph # (Auto) 4.20 H (1.2-3.4) K/uL [place] # (Auto) 0.93 H (0.11-0.59) K/uL PT 20.3 H (9.0-12.0) Seconds INR 2.1 H (0.9-1.1) Chloride 108 H (98-107) mmol/L BUN 23 H (7-18) mg/dl BUN/Creatinine Ratio (10-20) Glucose 141 H (70-99) mg/dl POC Glucose (70-99) mg/dl Magnesium (1.8-2.4) mg/dl Troponin I 0.756 H* (0-0.045) ng/ml Albumin 3.3 L (3.4-5.0) gm/dl Albumin/Globulin Ratio 0.8 L (0.9-2) 04/24/21 04/25/21 04/25/21 Range/Units 22:59 01:36 04:30 RBC (4.7-6.1) M/uL MCV (80-100) fL MCH (25-34) pg RDW Std Deviation (36.4-46.3) fL Neut # (Auto) (1.4-6.5) K/uL Lymph # (Auto) (1.2-3.4) K/uL [place] # (Auto) (0.11-0.59) K/uL PT 20.9 H (9.0-12.0) Seconds INR 2.2 H (0.9-1.1) Chloride (98-107) mmol/L BUN (7-18) mg/dl BUN/Creatinine Ratio (10-20) Glucose (70-99) mg/dl POC Glucose 116 H (70-99) mg/dl Magnesium (1.8-2.4) mg/dl Troponin I 161.000 H* (0-0.045) ng/ml Albumin (3.4-5.0) gm/dl Albumin/Globulin Ratio (0.9-2) 04/25/21 04/25/21 Range/Units 04:30 04:30 RBC 4.57 L (4.7-6.1) M/uL MCV 100.7 H (80-100) fL MCH (25-34) pg RDW Std Deviation 51.0 H (36.4-46.3) fL Neut # (Auto) 7.04 H (1.4-6.5) K/uL Lymph # (Auto) (1.2-3.4) K/uL [place] # (Auto) 0.73 H (0.11-0.59) K/uL PT (9.0-12.0) Seconds INR (0.9-1.1) Chloride 111 H (98-107) mmol/L BUN (7-18) mg/dl BUN/Creatinine Ratio 21.3 H (10-20) Glucose 117 H (70-99) mg/dl POC Glucose (70-99) mg/dl Magnesium 1.6 L (1.8-2.4) mg/dl Troponin I 115.000 H* (0-0.045) ng/ml Albumin (3.4-5.0) gm/dl Albumin/Globulin Ratio (0.9-2) Resident Activity Tracking Resident Involvement: Resident Care Provided Care Provided: Adult [facility] (1) ST elevation (STEMI) myocardial infarction Involved coronary artery: right coronary artery Qualified Code(s): I21.11 - ST elevation (STEMI) myocardial infarction involving right coronary artery
[2021-04-25] MEDS ORDERED: SODIUM CHLORIDE 0.9% 1000ML 500 ML IV ONE ×2 (09:48→14:19)
[2021-04-25] MEDS: lisinopril 5 MG TAB PO SCH (09:53)
[2021-04-25] MEDS: METOPROLOL SUCC 25MG EXT REL TAB PO SCH (09:53)
[2021-04-25] MEDS: ATORVASTATIN 40 MG TAB PO SCH (10:12)
[2021-04-25] MEDS: ASPIRIN 81 MG ECTAB PO SCH (10:12)
[2021-04-25] MEDS: PANTOprazole 40 MG TAB PO SCH ×2 (10:12→20:38)
[2021-04-25] MEDS: CLOPIDOGREL BISULFATE 75 MG TAB PO SCH (10:12)
--- NOTE | 2021-04-25 11:15 | Hospitalist Progress Note ---
Date of Service April 25, 2021 Assessment & Plan (1) Acute ST elevation myocardial infarction (STEMI) of inferior wall: Plan: Acute STEMI involving inferior wall proximal RCA with acute 100% thrombus, treated with DEMOND, then distal RCA with occlusion, also treated with DEMOND mild to moderate disease in LAD, chronic occlusion in left circumflex BP low normal today, await echo results continue Plavix, Aspirin and Coumadin for one month, can then stop aspirin down grade to PCU today potential discharge tomorrow, will d/w cardiology (2) S/P drug eluting coronary stent placement: Plan: DEMOND placed in proximal and distal RCA tolerated well Plavix, aspirin and Coumadin (3) Postsurgical percutaneous transluminal coronary angioplasty (PTCA) status: Plan: See above (4) CAD (coronary artery disease): Plan: DEMOND in RCA medical management of mild/moderate disease in LAD, left cirumflex Lipitor, Plavix (5) Hypertension: Plan: BP low normal holding metoprolol and lisinopril follow up echo (6) Hyperlipidemia: Plan: Taking simvastatin 20 mg at bedtime prior to admission Recommend change to high-dose statin, atorvastatin 40 mg daily (7) DVT (deep venous thrombosis): Plan: DVT/long-term use of warfarin- INR therapeutic upon admission, continue current dose of warfarin INR is 2.2 today (8) intermission coordinator current use of anticoagulants with INR goal of 2.0-3.0: Plan: INR 2.2 (9) Diabetes mellitus: Plan: Hold semaglutide. Placed in Accu-Cheks before meals and at bedtime with NovoLog coverage per scale monitor for hypoglycemia (10) Insomnia: Plan: Add melatonin 3 mg at bedtime as needed Admission and Anticipated Discharge Date Admission Date: April 24, 2021 Subjective patient feeling much better, no chest pain, no diaphoresis, no nausea he admits that he had some symptoms on and off for a few days had this pain a few years ago, was worked up with dobutamine stress echo which was normal explained that plaque/stenosis can get worse, soft plaques can rupture and causes sudden thrombosis he asked about any permanent damage, explained that we would follow up echo results eating well today discussed likely discharge tomorrow BP running low normal, holding metoprolol and lisinopril for now Cr 0.86 after cath yesterday, INR is 2.2 Review of Systems Review of Systems: All systems reviewed & are unremarkable except as noted in Subjective Physical Exam Constitutional: well developed, + obese and comfortable; no acute distress Neck: trachea midline, no thyromegaly Respiratory: normal respiratory effort, lungs clear to auscultation Cardiovascular: RRR, no murmur, no edema Gastrointestinal (Abdomen): normal bowel sounds, soft, nontender, no hepatosplenomegaly Musculoskeletal: no cyanosis or clubbing, extremities motor strength 5/5 Skin: no rashes, warm and dry Neurologic: patellar DTR's 2+ bilat, sensation intact and PERRL, EOMI, accommodation nl, no face palsy, no dysarthria Psychiatric: A+Ox3, euthymic affect Results & Data Results & Data ([facility]) Vital Signs (Past 12 Hours) Vital Signs Temp Pulse Resp BP Pulse Ox 04/25/21 09:24 68 23 92/62 L 93 04/25/21 09:00 36.6 C 71 17 86/60 L 93 04/25/21 08:01 75 16 111/66 91 04/25/21 08:00 68 04/25/21 07:46 73 16 105/68 96 04/25/21 07:31 71 22 104/70 96 04/25/21 07:17 68 23 104/75 95 04/25/21 07:01 65 24 106/62 94 04/25/21 06:46 65 24 119/70 95 04/25/21 06:01 68 23 125/74 93 04/25/21 05:01 68 19 97 04/25/21 04:01 68 22 125/91 95 04/25/21 03:31 36.8 C 68 22 114/76 98 04/25/21 03:01 69 27 H 143/97 H 95 04/25/21 02:01 68 26 H 117/77 96 04/25/21 01:01 70 25 H 130/88 97 04/25/21 00:01 37 C 70 25 H 123/74 94 04/24/21 23:18 76 21 97 Laboratory Results Laboratory Results - last 24 hr 04/24/21 04/24/21 04/24/21 12:16 12:16 12:16 WBC 9.88 RBC 4.83 Hgb 16.5 Hct 48.2 MCV 99.8 MCH 34.2 H MCHC 34.2 RDW Std Deviation 50.0 H RDW Coeff of Karely 13.6 Plt Count 293 MPV 9.8 Immature Gran % (Auto) 0.2 Neut % (Auto) 45.4 Lymph % (Auto) 42.5 Butts % (Auto) 9.4 Eos % (Auto) 2.3 Baso % (Auto) 0.2 Neut # (Auto) 4.48 Lymph # (Auto) 4.20 H Butts # (Auto) 0.93 H Eos # (Auto) 0.23 Baso # (Auto) 0.02 Immature Gran # (Auto) 0.02 PT 20.3 H INR 2.1 H APTT 29.9 PTT Ratio 1.1 Sodium 138 Potassium 3.9 Chloride 108 H Carbon Dioxide 21 Anion Gap 9.0 BUN 23 H Creatinine 1.20 Est Cr Clr Drug Dosing 82.8 Est GFR ( Amer) 71.6 Est GFR (Non-Af Amer) 61.8 BUN/Creatinine Ratio 19.4 Glucose 141 H POC Glucose Calcium 9.6 Phosphorus Magnesium Total Bilirubin 0.6 AST 28 ALT 32 Alkaline Phosphatase 82 Troponin I 0.756 H* Total Protein 7.2 Albumin 3.3 L Globulin 3.9 Albumin/Globulin Ratio 0.8 L Lipase 122 Nasal Screen MRSA (PCR) COVID-19 Eval Order SARS-CoV-2 (PCR) 04/24/21 04/24/21 04/24/21 12:16 12:16 20:50 WBC RBC Hgb Hct MCV MCH MCHC RDW Std Deviation RDW Coeff of Karely Plt Count MPV Immature Gran % (Auto) Neut % (Auto) Lymph % (Auto) Butts % (Auto) Eos % (Auto) Baso % (Auto) Neut # (Auto) Lymph # (Auto) Butts # (Auto) Eos # (Auto) Baso # (Auto) Immature Gran # (Auto) PT INR APTT PTT Ratio Sodium Potassium Chloride Carbon Dioxide Anion Gap BUN Creatinine Est Cr Clr Drug Dosing Est GFR ( Amer) Est GFR (Non-Af Amer) BUN/Creatinine Ratio Glucose POC Glucose Calcium Phosphorus Magnesium Total Bilirubin AST ALT Alkaline Phosphatase Troponin I Total Protein Albumin Globulin Albumin/Globulin Ratio Lipase Nasal Screen MRSA (PCR) Negative COVID-19 Eval Order Covid19 at [facility] SARS-CoV-2 (PCR) NEGATIVE 08/02/21 08/03/21 08/03/21 22:59 01:36 04:30 WBC RBC Hgb Hct MCV MCH MCHC RDW Std Deviation RDW Coeff of Karely Plt Count MPV Immature Gran % (Auto) Neut % (Auto) Lymph % (Auto) Butts % (Auto) Eos % (Auto) Baso % (Auto) Neut # (Auto) Lymph # (Auto) Butts # (Auto) Eos # (Auto) Baso # (Auto) Immature Gran # (Auto) PT 20.9 H INR 2.2 H APTT PTT Ratio Sodium Potassium Chloride Carbon Dioxide Anion Gap BUN Creatinine Est Cr Clr Drug Dosing Est GFR ( Amer) Est GFR (Non-Af Amer) BUN/Creatinine Ratio Glucose POC Glucose 116 H Calcium Phosphorus Magnesium Total Bilirubin AST ALT Alkaline Phosphatase Troponin I 161.000 H* Total Protein Albumin Globulin Albumin/Globulin Ratio Lipase Nasal Screen MRSA (PCR) COVID-19 Eval Order SARS-CoV-2 (PCR) 04/25/21 04/25/21 04:30 04:30 WBC 9.83 RBC 4.57 L Hgb 15.4 Hct 46.0 MCV 100.7 H MCH 33.7 MCHC 33.5 RDW Std Deviation 51.0 H RDW Coeff of Kare[place] 13.6 Plt Count 244 MPV 9.5 Immature Gran % (Auto) 0.2 Neut % (Auto) 71.7 Lymph % (Auto) 19.8 Butts % (Auto) 7.4 Eos % (Auto) 0.7 Baso % (Auto) 0.2 Neut # (Auto) 7.04 H Lymph # (Auto) 1.95 Butts # (Auto) 0.73 H Eos # (Auto) 0.07 Baso # (Auto) 0.02 Immature Gran # (Auto) 0.02 PT INR APTT PTT Ratio Sodium 139 Potassium 4.4 Chloride 111 H Carbon Dioxide 24 Anion Gap 4.0 BUN 18 Creatinine 0.86 D Est Cr Clr Drug Dosing 114.1 Est GFR ( Amer) 103.3 Est GFR (Non-Af Amer) 89.1 BUN/Creatinine Ratio 21.3 H Glucose 117 H POC Glucose Calcium 8.7 Phosphorus 2.7 Magnesium 1.6 L Total Bilirubin AST ALT Alkaline Phosphatase Troponin I 115.000 H* Total Protein Albumin Globulin Albumin/Globulin Ratio Lipase Nasal Screen MRSA (PCR) COVID-19 Eval Order SARS-CoV-2 (PCR) Medications Administered Current Inpatient Medications Aspirin (Aspirin 81 Mg Ectab) 81 mg PO [facility] Stop: 05/25/21 08:59 Last Admin: 04/25/21 10:12 Dose: 81 mg Documented by: Atorvastatin Calcium (Atorvastatin 40 Mg Tab) [facility] [place]: 05/25/21 08:59 Last Admin: 04/25/21 10:12 Dose: 40 mg Documented by: Clopidogrel Bisulfate (Clopidogrel Bisulfate 75 Mg Tab) [facility] [place]: 05/25/21 08:59 Last Admin: 04/25/21 10:12 Dose: 75 mg Documented by: Sodium Chloride (Nss 1000ml) 1,000 mls @ 75 mls/hr IV .[id number] [facility] Stop: 05/24/21 13:44 Last Admin: 04/25/21 03:53 Dose: 75 mls/hr Documented by: Lisinopril (Lisinopril 5 Mg Tab) 5 mg PO [facility] Stop: 05/25/21 08:59 Last Admin: 04/25/21 09:53 Dose: Not Given Documented by: Melatonin (Melatonin 3 Mg Tab) 3 mg PO HS PRN PRN Reason: Sleep Stop: 05/25/21 21:59 Metoprolol Succinate (Metoprolol Succ 25mg Ext Rel Tab) 25 mg PO [facility] Stop: 05/24/21 19:29 Last Admin: 04/25/21 09:53 Dose: Not Given Documented by: Miscellaneous (Icu Protocol For Hyperglycemia) 1 ea N/A PRN PRN; Protocol PRN Reason: Hyperglycemia Protocol Stop: 04/26/21 13:41 Pantoprazole Sodium (Pantoprazole 40 Mg Tab) 40 mg PO BID [facility] Stop: 05/24/21 20:59 Last Admin: 04/25/21 10:12 Dose: 40 mg Documented by: Warfarin Sodium (Warfarin Sod 5 Mg Tab) 5 mg PO DAILY@1600 [facility] Stop: 05/24/21 18:44 Last Admin: 04/24/21 20:33 Dose: 5 mg Documented by: PG Care Time/CCT Total # of Minutes Spent Total Time Spent with Patient: Total time spent is greater than 50% in coordination of care (as documented) at patient's floor/unit and/or counseling patient: Coding Level of Care Code 29458 Subseq Hosp Care Lvl [address] elevation myocardial infarction (STEMI) of inferior wall I21.19 S/P drug eluting coronary stent placement Z95.5 Postsurgical percutaneous transluminal coronary angioplasty (PTCA) status Z98.61 CAD (coronary artery disease) I25.10 Hypertension I10 Hyperlipidemia E78.5 DVT (deep venous thrombosis) I82.409 half-way current use of anticoagulants with INR goal of 2.0-3.0 Z79.01 Diabetes mellitus E11.9 Insomnia G47.00
--- NOTE | 2021-04-25 14:16 | Cardiology Progress Note ---
Date of Service April 25, 2021 Assessment & Plan (1) ST elevation (STEMI) myocardial infarction: (2) CAD (coronary artery disease): (3) Hypertension: (4) Hyperlipidemia: (5) Anticoagulant long-term use: (6) Paroxysmal ventricular tachycardia: Plan: ASSESSMENT/PLAN: 1. RCA STEMI: No further angina following RCA PCI times to. Continue dual anti-platelet therapy for 1 month while on Coumadin as per interventional Cardiology and then discontinue aspirin while continuing Plavix and warfarin for a total of 1 year. Beta-elizabeth and AVERY-inhibitor have been held due to hypotension today. Cardiac rehabilitation on discharge. Continue high- intensity statin therapy. 2. CAD s/p RCA PCI x 2: No further angina. No heart failure symptoms. Anti- platelet therapy as outlined by interventional Cardiology above. High-intensity statin therapy. Beta-elizabeth and AVERY-inhibitor have been held due to hypotension today. If able, would resume low-dose beta-elizabeth tomorrow. 3. Hypertension: Asymptomatic by hypotensive today. Antihypertensive agents were held today due to hold parameters and systolic blood pressure in the 80s at times. 4. Dyslipidemia: LDL not optimized. Continue high-intensity statin therapy which was initiated during this hospital stay. 5. Anticoagulation therapy: On anticoagulation therapy as per his PCP. He is on anticoagulation therapy for recurrent DVT. 6. Paroxysmal ventricular tachycardia: Recommend low-dose beta-elizabeth, perhaps he will tolerate metoprolol succinate 12.5 mg once daily tomorrow. Reassess blood pressure tomorrow. 7. Tobacco abuse: Stop smoking. 8. Disposition: Cardiology will follow along. Possible discharge tomorrow if blood pressure improves and able to ambulate without symptoms. Reassess tomorrow. Admission and Anticipated Discharge Date Admission Date: April 24, 2021 Subjective Patient was seen earlier today. No further angina. No shortness of breath. He has not ambulated in the hallway. He denies syncope, near-syncope, palpitations, edema, or bleeding. He was unaccompanied in his hospital room. Review of systems: As above. Physical Exam Physical Exam: Gen.: No acute distress. Alert and oriented. HEENT: Anicteric sclera. Neck: Thick neck. Cardiac: Regular. Normal S1-S2. No murmurs, rubs, or gallops. Pulmonary: Clear to auscultation bilaterally without wheezes, rales, or rhonchi. Abdomen: Soft, nontender, nondistended, with normoactive bowel sounds. No bruits noted. Extremities: 1+ radial pulses bilaterally. Right radial cath site is clean, dry, and intact without erythema or discharge. 1+ posterior tibialis pulses bilaterally. Trace bilateral lower extremity edema. No cyanosis. Results & Data ([facility]) Vital Signs (Past 12 Hours) Vital Signs Temp Pulse Resp BP Pulse Ox 04/25/21 11:01 72 21 105/68 95 04/25/21 10:35 68 22 96/67 L 94 04/25/21 10:01 70 21 85/60 L 93 04/25/21 09:24 68 23 92/62 L 93 04/25/21 09:00 36.6 C 71 17 86/60 L 93 04/25/21 08:01 75 16 111/66 91 04/25/21 08:00 68 04/25/21 07:46 73 16 105/68 96 04/25/21 07:31 71 22 104/70 96 04/25/21 07:17 68 23 104/75 95 04/25/21 07:01 65 24 106/62 94 04/25/21 06:46 65 24 119/70 95 04/25/21 06:01 68 23 125/74 93 04/25/21 05:01 68 19 97 04/25/21 04:01 68 22 125/91 95 04/25/21 03:31 36.8 C 68 22 114/76 98 04/25/21 03:01 69 27 H 143/97 H 95 Laboratory Results Laboratory Results - last 24 hr 04/24/21 04/24/21 04/25/21 20:50 22:59 01:36 WBC RBC Hgb Hct MCV MCH MCHC RDW Std Deviation RDW Coeff of Karely Plt Count MPV Immature Gran % (Auto) Neut % (Auto) Lymph % (Auto) [place] % (Auto) Eos % (Auto) Baso % (Auto) Neut # (Auto) Lymph # (Auto) [place] # (Auto) Eos # (Auto) Baso # (Auto) Immature Gran # (Auto) PT INR Sodium Potassium Chloride Carbon Dioxide Anion Gap BUN Creatinine Est Cr Clr Drug Dosing Est GFR ( Amer) Est GFR (Non-Af Amer) BUN/Creatinine Ratio Glucose POC Glucose 116 H Calcium Phosphorus Magnesium Troponin I 161.000 H* Nasal Screen MRSA (PCR) Negative 04/25/21 04/25/21 04/25/21 04:30 04:30 04:30 WBC 9.83 RBC 4.57 L Hgb 15.4 Hct 46.0 MCV 100.7 H MCH 33.7 MCHC 33.5 RDW Std Deviation 51.0 H RDW Coeff of Karely 13.6 Plt Count 244 MPV 9.5 Immature Gran % (Auto) 0.2 Neut % (Auto) 71.7 Lymph % (Auto) 19.8 [place] % (Auto) 7.4 Eos % (Auto) 0.7 Baso % (Auto) 0.2 Neut # (Auto) 7.04 H Lymph # (Auto) 1.95 [place] # (Auto) 0.73 H Eos # (Auto) 0.07 Baso # (Auto) 0.02 Immature Gran # (Auto) 0.02 PT 20.9 H INR 2.2 H Sodium 139 Potassium 4.4 Chloride 111 H Carbon Dioxide 24 Anion Gap 4.0 BUN 18 Creatinine 0.86 D Est Cr Clr Drug Dosing 114.1 Est GFR ( Amer) 103.3 Est GFR (Non-Af Amer) 89.1 BUN/Creatinine Ratio 21.3 H Glucose 117 H POC Glucose Calcium 8.7 Phosphorus 2.7 Magnesium 1.6 L Troponin I 115.000 H* Nasal Screen MRSA (PCR) Diagnostic Findings Echo 04/24/2021 report reviewed: Mildly reduced LV systolic function with inferolateral and inferior wall motion abnormality. Telemetry personally reviewed: 6 beat run of ventricular tachycardia but otherwise sinus rhythm. ECG personally reviewed 04/25/2021 at 5:32 a.m.: Sinus rhythm 68 beats per minute. Inferior infarct. Medications Administered Current Inpatient Medications Aspirin (Aspirin 81 Mg Ectab) [address] [facility] Stop: 05/25/21 08:59 Last Admin: 04/25/21 10:12 Dose: 81 mg Documented by: Atorvastatin Calcium (Atorvastatin 40 Mg Tab) [facility] Stop: 05/25/21 08:59 Last Admin: 04/25/21 10:12 Dose: 40 mg Documented by: Clopidogrel Bisulfate (Clopidogrel Bisulfate 75 Mg Tab) [address] [facility] Stop: 05/25/21 08:59 Last Admin: 04/25/21 10:12 Dose: 75 mg Documented by: Diphenhydramine HCl (Diphenhydramine Capsule 25 Mg Cap) 25 mg PO HS PRN PRN Reason: Insomnia Stop: 05/25/21 19:23 Last Admin: 04/25/21 20:38 Dose: 25 mg Documented by: Sodium Chloride (Nss 1000ml) 1,000 mls @ 75 mls/hr IV .[id number] [facility] Stop: 05/24/21 13:44 Last Admin: 04/25/21 16:18 Dose: 75 mls/hr Documented by: Lisinopril (Lisinopril 5 Mg Tab) 5 mg PO QAM [facility] Stop: 05/25/21 08:59 Last Admin: 04/25/21 09:53 Dose: Not Given Documented by: Melatonin (Melatonin 3 Mg Tab) 3 mg PO HS PRN PRN Reason: Sleep Stop: 05/25/21 21:59 Metoprolol Succinate (Metoprolol Succ 25mg Ext Rel Tab) [facility] Stop: 05/24/21 19:29 Last Admin: 04/25/21 09:53 Dose: Not Given Documented by: Pantoprazole Sodium (Pantoprazole 40 Mg Tab) 40 mg PO BID [facility] Stop: 05/24/21 20:59 Last Admin: 04/25/21 20:38 Dose: 40 mg Documented by: Warfarin Sodium (Warfarin Sod 5 Mg Tab) 5 mg PO DAILY@1600 [facility] Stop: 05/24/21 18:44 Last Admin: 04/25/21 16:18 Dose: 5 mg Documented by: PG Care Time/CCT Total # of Minutes Spent Total Time Spent with Patient: Total time spent is greater than 50% in senior project coordinator rdination of care (as documented) at patient's floor/unit and/or counseling patient: Coding Level of Care Code 88466 Subseq Hosp Care Lvl [address] elevation (STEMI) myocardial infarction I21.11 Involved coronary artery: right coronary artery CAD (coronary artery disease) I25.10 Hypertension I10 Hyperlipidemia E78.5 Anticoagulant long-term use Z79.01 Paroxysmal ventricular tachycardia I47.2 (1) ST elevation (STEMI) myocardial infarction Involved coronary artery: right coronary artery Qualified Code(s): I21.11 - ST elevation (STEMI) myocardial infarction involving right coronary artery
--- NOTE | 2021-04-25 14:48 | Billing Data ---
Date of Service April 25, 2021 Coding Level of Care Code 34739 Subseq Hosp Care Lvl 3
[2021-04-25] MEDS: WARFARIN SOD 5 MG TAB PO SCH (16:18)
[2021-04-25] MEDS ORDERED: diphenhydrAMINE Capsule 25 MG CAP PO PRN (19:24)
--- NOTE | 2021-04-25 21:23 | XCELERA ---
[id number]
[2021-04-25] MEDS ORDERED: MELATONIN 3 MG TAB PO PRN (22:00)
[2021-04-26] MEDS: SODIUM CHLORIDE 0.9% 1000ML 1,000 ML IV SCH (05:28)
[2021-04-26 07:36] LABS: INR 2.1 (0.9-1.1); Prothrombin Time 20.3 Seconds (9.0-12.0)
[2021-04-26 07:43] LABS: Estimated Average Glucose 105 mg/dl; Hemoglobin A1C 5.3 % (4.5-5.6)
[2021-04-26 07:50] LABS: BUN Creatinine Ratio 18.6 (10-20); Calcium 8.6 mg/dl (8.5-10.1); Creatinine Clr Calc Pharmacy 111.5 ml/min; Est GFR (African American) 102.3 ml/min; Est GFR (Non-African American) 88.3 ml/min; Potassium 4.4 mmol/L (3.5-5.1)
[2021-04-26] MEDS: CLOPIDOGREL BISULFATE 75 MG TAB PO SCH (08:27)
[2021-04-26] MEDS: ASPIRIN 81 MG ECTAB PO SCH (08:27)
[2021-04-26] MEDS: ATORVASTATIN 40 MG TAB PO SCH (08:27)
[2021-04-26] MEDS: PANTOprazole 40 MG TAB PO SCH (08:27)
[2021-04-26] MEDS ORDERED: METOPROLOL SUCC 25MG EXT REL TAB PO SCH (09:00)
--- NOTE | 2021-04-26 09:42 | Cardiology Progress Note ---
Date of Service April 26, 2021 Assessment & Plan (1) ST elevation (STEMI) myocardial infarction: (2) CAD (coronary artery disease): (3) Hypertension: (4) Hyperlipidemia: (5) Anticoagulant long-term use: (6) Paroxysmal ventricular tachycardia: Plan: ASSESSMENT/PLAN: 1. RCA STEMI: No further angina following RCA PCI x 2. Continue dual anti- platelet therapy for 1 month while on Coumadin as per interventional Cardiology and then discontinue aspirin while continuing Plavix and warfarin for a total of 1 year. Beta-elizabeth and AVERY-inhibitor were held due to hypotension yesterday -- but Metoprolol Succinate ER will be restarted this morning. Cardiac rehab ilitation on discharge. Continue high-intensity statin therapy. 2. CAD s/p RCA PCI x 2: No further angina. No heart failure symptoms. Anti- platelet therapy as outlined by interventional Cardiology above. High-intensity statin therapy. Beta-elizabeth and AVERY-inhibitor have been held due to hypotension yesterday -- but Metoprolol Succinate ER 12.5 mg will be restarted this morning. 3. Hypertension: Patient is normotensive today. Resume beta-elizabeth today, continue to hold ACEI. I will see the patient in 1 week and I will start him on Lisinopril. 4. Dyslipidemia: Continue high-intensity statin therapy which was initiated during this hospital stay. 5. Anticoagulation therapy: On anticoagulation therapy as per his PCP. He is on anticoagulation therapy for recurrent DVT. 6. Paroxysmal ventricular tachycardia: Recommend low-dose beta-elizabeth -- resume metoprolol succinate 12.5 mg once daily. Reassess blood pressure following med administration. 7. Tobacco abuse: Stop smoking. 8. Disposition: Discharge to home later today if patient is able to ambulate and remains symptom free. Follow-up with [facility] on 05/05/21 at 8:30 am. Admission and Anticipated Discharge Date Admission Date: April 24, 2021 Subjective Mr. Fagan offers no complaints today and is feeling well. He denies any chest discomfort or angina pectoris. His breathing is at baseline. His blood pressure was low yesterday. Lisinopril and Metoprolol Succinate ER were held. He will get his Metoprolol Succinate ER 12.5 mg today. He has not ambulated in the hallway yet today but will in a short time to assess for any symptoms. He will be discharged to home later today if he remains asymptomatic with exertion. Physical Exam Physical Exam: GENERAL: Patient in no acute distress. HEENT: Head is atraumatic, normocephalic. EOM's intact. Facies symmetric. No perioral cyanosis. NECK: No JVD. JVP is at the level of the clavicle sitting upright. Carotid upstrokes are + 2 bilaterally. No bruits are noted. CHEST/LUNGS: Clear to auscultation throughout all lung wilks. No wheezes, rales, or crackles. CVS: S1 and S2 are regular without murmurs, gallops, or rubs. PMI is nondisplaced. No lifts, heaves, or thrills. No abdominal aortic or renal bruits. ABDOMINAL EXAM: Bowel sounds are present. No masses, organomegaly, or tenderness. EXTREMITIES: No clubbing or cyanosis. No edema. Intact posterior tibial and radial pulses bilaterally. NEUROLOGIC EXAM: Patient is awake, alert, and oriented. Pleasant and cooperative. Answers questions appropriately. Speech is clear. Normal movement in all 4 extremities. Gait pattern is unremarkable. TELEMETRY: -- Normal sinus rhythm at normal rates. Results & Data ([facility]) Vital Signs (Past 12 Hours) Vital Signs Temp Pulse Pulse Resp BP BP Pulse Ox 04/26/21 07:32 36.5 C 7 L 18 131/87 98 04/26/21 07:00 72 04/26/21 04:15 36.8 C 66 20 108/69 96 04/25/21 23:29 36.5 C 72 16 113/73 97 04/25/21 23:12 62 PG Care Time/CCT Total # of Minutes Spent Total Time Spent with Patient: Total time spent is greater than 50% in coordination of care (as documented) at patient's floor/unit and/or counseling patient: Coding Level of Care Code 70412 Subseq Hosp Care Lvl [address] elevation (STEMI) myocardial infarction I21.11 Involved coronary artery: right coronary artery CAD (coronary artery disease) I25.10 Hypertension I10 Hyperlipidemia E78.5 Anticoagulant long-term use Z79.01 Paroxysmal ventricular tachycardia I47.2 (1) ST elevation (STEMI) myocardial infarction Involved coronary artery: right coronary artery Qualified Code(s): I21.11 - ST elevation (STEMI) myocardial infarction involving right coronary artery
[2021-04-26] MEDS: lisinopril 5 MG TAB PO SCH (10:04)
--- NOTE | 2021-04-26 13:29 | Discharge Summary ---
Date of Service April 26, 2021 Admission HPI Per Admitting Provider The patient is a 66-year-old male with a past medical history including hypertension, diabetes mellitus, hyperlipidemia, BPH with LUTS, generalized osteoarthritis of multiple sites, long-term use of anticoagulants, history of DVT. He presented to the emergency department as a heart alert, due to the development of anterior and right-sided chest pain, shortness of breath and diaphoresis that occurred while on an elliptical at the gym. He did receive aspirin nitroglycerin in route to the hospital, reported that had improved his symptoms mildly. He reports having similar chest pain the previous evening, but it did not last as long and resolved spontaneously. He presently takes warfarin for a DVT which occurred about 10 years ago. Patient was taken emergently from the emergency department to the cardiac Paint Pourer, and then was admitted to the ICU for ongoing care Principal Diagnosis STEMI Discharge Exam Constitutional well developed, + obese and comfortable; no acute distress Neck trachea midline, no thyromegaly Respiratory normal respiratory effort, lungs clear to auscultation Cardiovascular RRR, no murmur, no edema Gastrointestinal (Abdomen) normal bowel sounds, soft, nontender, no hepatosplenomegaly Musculoskeletal no cyanosis or clubbing, extremities motor strength 5/5 Skin no rashes, warm and dry Neurologic patellar DTR's 2+ bilat, sensation intact and PERRL, EOMI, accommodation nl, no face palsy, no dysarthria Psychiatric A+Ox3, euthymic affect Discharge Data Allergies Allergy/AdvReac Type Severity Reaction Status Date / Time Sulfa (Sulfonamide Allergy Mild ?RX, WAS Verified 04/19/21 08:56 Antibiotics) TOLD CHILD Consultations 04/24/21 13:45 Consult Electrical Inspector Routine 04/25/21 08:29 Consult Cardiology Routine Procedures Performed Operation Date: 04/24/21 12:20 Actual Procedures p Aspiration/PCI w/DEMOND for Stemi - Davon Elizabeth MD s Cineradiography w/Routine Exam - Davon Elizabeth MD s Cath, Left with Cors and Vent - Davon Elizabeth MD Ordered Studies 04/24/21 12:28 CL Cath Imgs for PACS use only Stat Hospital Course (1) Acute ST elevation myocardial infarction (STEMI) of inferior wall: Acute STEMI involving inferior wall proximal RCA with acute 100% thrombus, treated with DEMOND, then distal RCA with occlusion, also treated with DEMOND mild to moderate disease in LAD, chronic occlusion in left circumflex BP low normal on day 2 but BP improved, normotensive today continue Plavix, Aspirin and Coumadin for one month, can then stop aspirin will discharge on Lipitor, Toprol 25mg daily follow up closely with cardiology Echo with EF minimally reduced, hypokinesis in RCA distribution will follow with cardiology, repeat echo in a few months after optimized on To prol and lisinopril (2) S/P drug eluting coronary stent placement: DEMOND placed in proximal and distal RCA tolerated well Plavix, aspirin and Coumadin stop aspirin after one month (3) Postsurgical percutaneous transluminal coronary angioplasty (PTCA) status: See above (4) CAD (coronary artery disease): DEMOND in RCA medical management of mild/moderate disease in LAD, left cirumflex Lipitor, Plavix (5) Hypertension: BP is now normal, HR in 90's start on Toprol 25mg daily, tolerated well follow up with cardiology to initiate Lisinopril if BP allows (6) Hyperlipidemia: Taking simvastatin 20 mg at bedtime prior to admission Recommend change to high-dose statin, atorvastatin 40 mg daily (7) DVT (deep venous thrombosis): DVT/long-term use of warfarin- INR therapeutic upon admission, continue current dose of warfarin INR is 2.1 today (8) [facility] current use of anticoagulants with INR goal of 2.0-3.0: INR 2.1 (9) Diabetes mellitus: Hold semaglutide, resume on discharge. (10) Insomnia: Add melatonin 3 mg at bedtime as needed Total Time Total Time Spent Total Time Spent (In Minutes): 32 Total Time Includes: Examination of the Patient, Discharge Planning, Medication Reconciliation and Communication With Other Providers (Dr. Salazar) Discharge Plan Discharge Items Patient Disposition: Home - Self-Care Reason For Visit: STEMI Discharge Diagnosis: ST elevation myocardial infarction Hypertension Condition on Discharge: Good Activity: Per Instructions section Lifting: None Bathing: No limitations Sexual Activity: Wait until after follow-up appointment Exercise/Sports: Wait until after follow-up appointment Driving/Machine Use: Resume 1 day after discharge Weightbearing: Full weightbearing Non-emergency contact: Primary Care Provider and Cytogenetic Technologist Call non-emergency contact if: you have any medication questions Follow-up/Referrals: Jarett Marroquin PA-C [Physician Instructor [employer]] - 05/05/21 8:30 am (needs follow up next week for STEMI) Pro,Trevon Cody MD [Primary Care Provider] - 05/02/21 2:15 pm (5-7 days) Diet: Carb Consistent or DM2 and Heart Healthy Addtl Attending Provider Instructions: Medications: please note several new medications and prior medications that were stopped - TOPROL: 25mg daily, this reduces heart rate and blood pressure, basically reduces strain on heart - LIPITOR: 40mg daily, this replaces Zocor, proven to stabilize plaques and reduce risk of future heart attack - PLAVIX: 75mg daily, continue this for at least a year, do not stop unless directed to do so by cardiology, helps keep stent open - ASPIRIN: 81mg daily, take for 30 days, important as it works with Plavix to prevent early clot formation in the stent, after 30 days you can stop aspirin stopped Flomax because this can lower blood pressure, want to make sure blood pressure is stable as outpatient before resuming STEMI treated with stents in distal and proximal right coronary artery the above medications are indicated to keep stents open, prevent future heart attack, preserve heart function as we discussed, your ejection fraction is 45-50%, some hypokinesis of inferior wall from heart attack on cardiology follow up, will try to start on Lisinopril as long as blood pressure allows Pending Studies at Discharge: No Stand-Alone Forms: My [facility] [employer], Smoking Cessation Medications and DC Order Prescriptions: New atorvastatin 40 mg Tablet 40 mg PO QAM 30 Days Qty: 30 RF: 3 clopidogrel 75 mg Tablet 75 mg PO QAM 30 Days Qty: 30 RF: 3 aspirin 81 mg Tablet,Delayed Release (Dr/Ec) 81 mg PO QAM 30 Days Qty: 30 RF: 0 metoprolol succinate 25 mg Tablet Extended Release 24 Hr 25 mg PO QAM 30 Days Qty: 30 RF: 3 nitroglycerin 0.4 mg tablet, sublingual 0.4 mg sublingual .PRN PRN (Reason: chest pain) Qty: 30 RF: 0 Continued Ozempic 0.25 mg or 0.5 mg(2 mg/1.5 mL) pen injector 0.25 mg subcut ONCE Qty: 1.5 RF: 3 warfarin 5 mg tablet 5 mg PO DAILY Qty: 35 RF: 5 Discontinued tamsulosin [Flomax] 0.4 mg capsule 0.4 mg PO DAILY Qty: 30 RF: 2 simvastatin 20 mg tablet 20 mg PO HS Qty: 90 RF: 3 olmesartan 20 mg tablet 20 mg PO DAILY Qty: 30 RF: 5 Discharge Orders: Discharge Order (Routine); Ordered 04/26/21 Ordered By: Ron Perez/Other Patient Handouts: Cardiac Catheterization Dc Admission Data Admit Date/Time: 04/24/21 13:45 Attending Provider: Ron Noe Admit Provider: Davon Elizabeth Primary Care Provider: Trevon Vega Other Providers: Davon Elizabeth ; Evan Mg ; Luke Salazar Other Interventions: Discharge Summary Assessment (RN) Last Done: 04/26/21 14:13 Coding Level of Care Code D/C DAY MANAGEMENT >[address] elevation myocardial infarction (STEMI) of inferior wall I21.19 S/P drug eluting coronary stent placement Z95.5 Postsurgical percutaneous transluminal coronary angioplasty (PTCA) status Z98.61 CAD (coronary artery disease) I25.10 Hypertension I10 Hyperlipidemia E78.5 DVT (deep venous thrombosis) I82.409 intermission coordinator current use of anticoagulants with INR goal of 2.0-3.0 Z79.01 Diabetes mellitus E11.9 Insomnia G47.00
--- NOTE | 2021-04-27 05:30 | Electrocardiogram Report ---
Test Reason : Blood Pressure : / mmHG Vent. Rate : 082 BPM Atrial Rate : 082 BPM P-R Int : 160 ms QRS Dur : 096 ms QT Int : 362 ms P-R-T Axes : 043 058 085 degrees QTc Int : 422 ms Normal sinus rhythm ST elevation consider inferolateral injury or acute infarct ACUTE MA / STEMI Consider right ventricular involvement in acute inferior infarct Abnormal ECG When compared with ECG of 14-DEC-2015 14:29, ST elevation now present in Inferolateral leads Confirmed by Luke Salazar ([id number]) on 04/27/2021 5:30:00 AM Referred By: REFERRED SELF Confirmed By:Luke Salazar
--- NOTE | 2021-04-27 05:42 | Electrocardiogram Report ---
Test Reason : Blood Pressure : / mmHG Vent. Rate : 074 BPM Atrial Rate : 074 BPM P-R Int : 168 ms QRS Dur : 092 ms QT Int : 388 ms P-R-T Axes : 042 001 013 degrees QTc Int : 430 ms Normal sinus rhythm Low voltage QRS Possible Inferior infarct , age undetermined Abnormal ECG When compared with ECG of 24-APR-2021 12:10, Borderline criteria for Inferior infarct are now Present ST no longer elevated in Inferolateral leads Nonspecific T wave abnormality now evident in Inferior leads Confirmed by Luke Salazar ([id number]) on 04/27/2021 5:41:57 AM Referred By: REFERRED SELF Confirmed By:Luke Salazar
--- NOTE | 2021-04-27 06:07 | Electrocardiogram Report ---
Test Reason : Blood Pressure : / mmHG Vent. Rate : 068 BPM Atrial Rate : 068 BPM P-R Int : 164 ms QRS Dur : 096 ms QT Int : 414 ms P-R-T Axes : 027 -12 -36 degrees QTc Int : 440 ms Normal sinus rhythm Low voltage QRS Inferior infarct (cited on or before 24-APR-2021) Abnormal ECG When compared with ECG of 24-APR-2021 15:41, T wave inversion now evident in Inferior leads Confirmed by Luke Salazar ([id number]) on 04/27/2021 6:07:14 AM Referred By: REFERRED SELF Confirmed By:Luke Salazar
--- NOTE | 2021-04-28 06:40 | Electrocardiogram Report ---
Test Reason : Blood Pressure : / mmHG Vent. Rate : 068 BPM Atrial Rate : 068 BPM P-R Int : 152 ms QRS Dur : 088 ms QT Int : 428 ms P-R-T Axes : 025 -07 -64 degrees QTc Int : 455 ms Normal sinus rhythm Inferior infarct (cited on or before 24-APR-2021) T wave abnormality, consider inferolateral ischemia Abnormal ECG When compared with ECG of 25-APR-2021 05:32, Inverted T waves have replaced nonspecific T wave abnormality in Inferolateral leads Confirmed by Luke Salazar ([id number]) on 04/28/2021 6:39:58 AM Referred By: REFERRED SELF Confirmed By:Luke Salazar
== END 2021-04-26 14:44 | disposition home or self-care (01) | DRG 247 ==
LOC: ED 12:07 → 1E 12:39 → CC 12:39 → SUATTDRO 13:45 → 1E 13:45 → 2S 04-25 16:17

== ENCOUNTER 2022-06-06 05:12 | Observation (INO) ==
--- NOTE | 2022-05-14 10:27 | PAT Medication Instructions ---
Medication Instructions Date of Service May 14, 2022 Home Medications Medication Instructions Recorded nitroglycerin 0.4 mg sublingual 0.4 mg sublingual .PRN PRN chest 04/26/21 tablet pain #30 tabs clopidogrel 75 mg tablet 75 mg PO QAM #90 tabs 02/23/22 metoprolol succinate 25 mg 25 mg PO QAM #180 tabs 02/23/22 tablet,extended release 24 hr atorvastatin 40 mg tablet 40 mg PO QAM #90 tabs 03/30/22 semaglutide (weight loss) 0.5 0.5 mg (0.5 mL) subcut Q7D #2 mL 04/13/22 mg/0.5 mL subcutaneous pen injector (Wegovy) aspirin 81 mg tablet,delayed 81 mg PO DAILY #90 tabs 04/20/22 release (Adult Low Dose Aspirin) warfarin 5 mg tablet 5 mg PO DAILY #35 tabs 05/09/22 nitroglycerin 0.4 mg sublingual tablet 0.4 mg sublingual .PRN PRN chest pain losartan 25 mg tablet 12.5 mg PO QPM clopidogrel 75 mg tablet 75 mg PO QAM metoprolol succinate 25 mg tablet,extended release 24 hr 25 mg PO QAM atorvastatin 40 mg tablet 40 mg PO QAM semaglutide (weight loss) 0.5 mg/0.5 mL subcutaneous pen injector (Wegovy) 0.5 mg (0.5 mL) subcut Q7D aspirin 81 mg tablet,delayed release (Adult Low Dose Aspirin) 81 mg PO DAILY warfarin 5 mg tablet 5 mg PO DAILY hydrocodone 5 mg-acetaminophen 325 mg tablet 1 tab PO Q6H PRN Pain Continue as directed nitroglycerin 0.4 mg sublingual tablet 0.4 mg sublingual .PRN PRN chest pain (if needed) semaglutide (weight loss) 0.5 mg/0.5 mL subcutaneous pen injector (Wegovy) 0.5 mg (0.5 mL) subcut Q7D ASK your prescriber and surgeon warfarin 5 mg tablet 5 mg PO DAILY clopidogrel 75 mg tablet 75 mg PO QAM (in order for spinal anesthesia, clopidogrel/plavix needs to be stopped 7 days before surgery. Please check if okay with doctor that prescribes this to you) Take morning of surgery With a small sip of water, OTHERWISE NOTHING TO EAT OR DRINK AFTER MIDNIGHT: metoprolol succinate 25 mg tablet,extended release 24 hr 25 mg PO QAM atorvastatin 40 mg tablet 40 mg PO QAM aspirin 81 mg tablet,delayed release (Adult Low Dose Aspirin) 81 mg PO DAILY (continue as normal unless told otherwise by surgeon) hydrocodone 5 mg-acetaminophen 325 mg tablet 1 tab PO Q6H PRN Pain (if needed) Take evening before surgery losartan 25 mg tablet 12.5 mg PO QPM hydrocodone 5 mg-acetaminophen 325 mg tablet 1 tab PO Q6H PRN Pain (if needed) Other Notes If you have any questions please call us at [phone] or [phone] or [phone] or [phone]
--- NOTE | 2022-05-18 10:45 | Anesthesiology Consultation ---
Date of Service May 18, 2022 Assessment & Plan (1) Encounter for pre-operative examination: - check coags am DOS. - cardiology 04/20/22 MN: "...Hypertension, Dyslipidemia, DVT (on anticoagulation therapy), Obesity, Osteoarthritis, Resolved Ischemic Cardiomyopathy(Post LA LVEF 45% to 50%, current LVEF 50% to 55% with inferolateral and inferior wall hypokinesis), and CAD s/p RCA STEMI 04/24/21 s/p RCA Drug Eluting Stents x 2 who presents today for Preoperative Cardiologic Evaluation...undergo a right MARCELINA on 06/06/[address] Mckeon but this date has changed couple of times...continues to do very well from cardiac standpoint...has not experienced any limiting cardiopulmonary symptoms with his daily activities or with his recent exercise program...has not experienced any angina pectoris or anginal equivalent symptoms, overt signs or symptoms of heart failure, nor has he had any symptoms suggestive of dysrhythmia...has not had any symptoms suggestive of stroke or mini stroke...does not experience claudication with his activities, but he is very limited right now due to hip pain related to arthritisBased on his normal LV systolic function, known coronary anatomy, and functional status up until approximately 6 weeks ago without limiting cardiopulmonary symptoms -- patient is an acceptable surgical risk to proceed with surgery as scheduled provided he take his usual doses of Toprol XL 25 mg and Aspirin 81 mg on morning of surgery with sips of water. Patient is aware that he should hold Plavix x 7 days leading up to surgery. Hold Coumadin x 3 days leading up to surgery. And he was advised to hold Losartan on the morning of surgery. There is no need for further ischemic workup at this time. Recommend aggressive DVT prophylaxis postoperatively and early ambulation. Resume Plavix and Coumadin following surgery..." - Outpatient joint assessment: Patient is currently scheduled for inpatient pathway. If re-evaluated pending system levels during current pandemic/surgeon requests outpatient pathway, patient is NOT acceptable candidate for outpatient joint program from anesthesia standpoint. Surgeon's office made aware. - COVID screening: Per assessment on 05/18/2022: Travel screen negative, no known COVID-19 positive contacts or current COVID-19 related symptoms in past 2 weeks. Pt vaccinated. Pre-op COVID testing to surgeon's discretion. Chart Review Chart Review: Acceptable Risk for Surgery and Patient seen in Pre Admission Testing Teaching & Discussion Pre-Anesthesia Teaching/Discussion Notes: Instructed NPO after midnight before surgery, except medications with 15 cc of water. Medication instructions provided according to the PAT guidelines. History Surgery Operation Date: 06/06/22 10:40 Proposed Procedures p Right Total Hip Arthroplasty - Jeffrey Mckeon MD Height/Weight Height: 5 ft 9.5 in Weight: 125.7 kg Allergies Allergy/AdvReac Type Severity Reaction Status Date / Time Sulfa (Sulfonamide Allergy Mild ?RX, WAS Verified 04/20/22 10:41 Antibiotics) TOLD CHILD Medications Home Medications Medication Instructions Recorded Confirmed Last Taken nitroglycerin 0.4 mg sublingual 0.4 mg sublingual .PRN PRN chest 04/26/21 05/10/22 Unknown tablet pain #30 tabs losartan 25 mg tablet 12.5 mg PO QPM 11/15/21 05/10/22 Unknown clopidogrel 75 mg tablet 75 mg PO QAM #90 tabs 02/23/22 05/10/22 Unknown metoprolol succinate 25 mg 25 mg PO QAM #180 tabs 02/23/22 05/10/22 Unknown tablet,extended release 24 hr atorvastatin 40 mg tablet 40 mg PO QAM #90 tabs 03/30/22 05/10/22 Unknown semaglutide (weight loss) 0.5 0.5 mg (0.5 mL) subcut Q7D #2 mL 04/13/22 05/10/22 Unknown mg/0.5 mL subcutaneous pen injector (Wegovy) aspirin 81 mg tablet,delayed 81 mg PO DAILY #90 tabs 04/20/22 05/10/22 Unknown release (Adult Low Dose Aspirin) warfarin 5 mg tablet 5 mg PO DAILY #35 tabs 05/09/22 05/10/22 Unknown hydrocodone 5 mg-acetaminophen 325 1 tab PO Q6H PRN Pain 05/10/22 05/10/22 Unknown mg tablet amoxicillin 500 mg-potassium 1 tab PO BID 10 days #20 tabs 05/17/22 Unknown clavulanate 125 mg tablet (Augmentin) Past Medical History Medical History (Updated 05/18/22 @ 15:08 by Chelita Tyler PA-C) CAD (coronary artery disease) 04/2021 STENTS X 2 @ [facility] FOLLOWS W/ ROSALIE Cardiomyopathy, ischemic LVEF 50% to 55% Cerebral atherosclerosis Depression DVT (deep venous thrombosis) 7-8 yrs ago, R leg, possibly d/t travel on extended car trip Dysmetabolic syndrome X Hearing loss Hyperlipidemia Hypertension controlled, stable per pt LVH (left ventricular hypertrophy) moderate Meniere's disease stable, last episode several yrs ago Obesity ST elevation (STEMI) myocardial infarction 04/2021 [facility], s/p 2 stents TMJ (temporomandibular joint syndrome) pain, denies clicking or locking Patient denies h/o stroke, seizures, DM or blood transfusions. Exercise / Class Metabolic Activity II 4-5 Yardwork/Stairs/Walk up hill (denies CP or SOB with 1 FOS, ambulates with cane) Past Family History Family History Grandmother Cancer Father Acute myocardial infarction Hypertension Mother Acute myocardial infarction Brother Hypertension Other Myocardial infarction Denies family history of Ovarian cancer Prostate cancer Breast cancer Colorectal cancer Past Surgical History Surgical History H/O wisdom tooth extraction History of cardiac cath 04/2021 STENTS X 2 @ [facility] FOLLOWS W/ ROSALIE History of total knee replacement B/L Past Anesthesia History No Hx of Anesthesia Complications and No Family Hx of Anesthesia Complications History of PONV No Hx of PONV and Hx of Motion Sickness Social History Smoking Status: Current some day smoker tobacco type: cigars Smoking cigarettes per day: 1 cigar 3 or 4 days per week- ADVISED Do You Dip or Chew Tobacco: No Hx Alcohol Use: Yes Alcohol type: wine alcohol intake frequency: 0-2 drinks per day Hx Substance Use: No substance use type: does not use Review of Systems Snoring, denies witnessed apneas or sleep studies. Patient denies chest pain, shortness of breath, dyspnea on exertion, reflux, fever, chills, cough, wheezing, or palpitations. Physical Exam Vital Signs Vitals BP 123/85 P 75 TEMP 98.8 SP02 97% on RA RESP 18 Physical Full cervical extension range of motion without pain TMD 3.5 finger breadths Mallampati Score 3 Dentition: intact, one missing tooth back unsure of side, one crown-unsure of location; denies chipped or loose teeth, implants or bridges Lungs: normal respiratory effort. Clear throughout to auscultation, no adventitious breath sounds Cardiac: regular rate and rhythm, no murmurs noted Carotid arteries: negative bruit bilat Lab Results Anesthesia Preop Results Results Anesthesia Widget: WBC 5.72 K/ul (4.8-10.8) 05/18/22 Hgb 13.3 g/dl (14.0-18.0) L 05/18/22 Hct 41.2 % (40.1-51.0) 05/18/22 Plt 269 K/uL (130-400) 05/18/22 Na 139 mmol/L (136-145) 05/18/22 K 4.1 mmol/L (3.5-5.1) 05/18/22 Cl 108 mmol/L (98-107) H 05/18/22 CO2 24 mmol/L (21-32) 05/18/22 BUN 20 mg/dl (6-23) 05/18/22 Creat 0.89 mg/dl (0.6-1.4) 05/18/22 Glucose Level 90 mg/dl (70-99(Fasting)) 05/18/22 PT 18.8 Seconds (9.0-12.0) H 05/18/22 PTT 33.6 Seconds (21.0-31.0) H 05/18/22 INR 1.8 (0.9-1.1) H 05/18/22 Urine Appearance Cloudy 05/15/22 Blood Type O Positive 05/18/22 Antibody Screen NEGATIVE 05/18/22 Testing Laboratory Results Surgeon's office made aware of recent UA and soon initiating antibiotic through urology. Electrocardiogram Date: 04/20/22 Sinus rhythm with a single PVC, rate 81 bpm Possible inferior infarct, age undetermined Chest X-Ray Date: 05/18/22 PA and lateral chest radiographs are compared to study dated 04/24/2021. The heart is enlarged noting atherosclerotic calcification of the thoracic aorta. The pulmonary vasculature is not congested. Chronic interstitial thickening is similar to previous. There is bibasilar scarring/atelectasis. There are scattered calcified granulomas. The lungs and pleural spaces are otherwise clear. There is no pneumothorax. The skeletal structures are osteopenic. The bony thorax appears intact. IMPRESSION: Cardiomegaly with no active disease in the chest. Echocardiogram Date: 06/16/21 EF 50-55% Hypokinesis of inferior and inferolateral mchugh Grade I diastolic dysfunction Moderate cLVH No significant valvular stenosis or regurgitation visualized. Valves are not well seen. Technically difficult study, poor image quality Cardiac Catheterization Date: 04/24/21 Findings RCA is occluded at the proximal portion. The left main is of normal caliber without stenosis it bifurcates into the LAD and the circumflex There is a chronic total occlusion of the midportion of the circumflex with retrograde filling of the distal circumflex from the LAD the proximal to mid and distal LAD has mild luminal irregularities The 2 diagonal branches are free of disease The LAD is a small caliber vessel DEMOND to proximal RCA lesion. SHARON-3 flow was restored however a near thrombotic occlusion was visualized in the distal RCA for which direct stenting was achieved using a 5.0 x 12.2 drug-eluting stent.
--- NOTE | 2022-05-30 07:39 | History & Physical Report ---
Date of Service May 30, 2022 Assessment & Plan (1) Degenerative joint disease of right hip: Plan: Postoperative prescriptions for Percocet will be provided at discharge from the hospital. Anticipate discharge to home with home health services. He will need to hold his Coumadin and Plavix preop and we will resume it postoperatively. He is aware. He has obtained clearance from his primary care physician and we will see his file conversion operator for clearance as well. Postoperative followup appointment has been made for 06/21/2022 at 13:45. The patient is aware of COVID-19 risks associated with surgery. He is currently asymptomatic of any COVID-19 symptoms. PDMP was checked and there are no concerning findings. He already has a walker and cane available. He will bring his walker to the hospital the day of surgery. History of Present Illness Chief Complaint: Right hip pain Primary Care Provider: Trevon Vega MD This 67-year-old male presents for his preoperative history and physical. He is scheduled to undergo a right hip total hip arthroplasty on 06/06/2022. The patient has had a 6-7 month history of right hip pain. It has become worse over time. He did try activity modification as well as a session of physical therapy without improvement. He states the PT actually made him worse. He is now using OTC medications as well as some [place] sparingly to control his pain. He states it is present every day, all day long. No specific injury. He denies any numbness. Pain does radiate from his groin into his anterior thigh. Worse with motion and weightbearing. Pain is affecting his ADLs. It is worse with weightbearing and ambulation. Preoperative imaging has been obtained. Allergies Allergy/AdvReac Type Severity Reaction Status Date / Time Sulfa (Sulfonamide Allergy Mild ?RX, WAS Verified 04/20/22 10:41 Antibiotics) TOLD CHILD Home Medications Medication Instructions Recorded Confirmed Type nitroglycerin 0.4 mg sublingual 0.4 mg sublingual .PRN PRN chest 04/26/21 05/10/22 Rx tablet pain #30 tabs losartan 25 mg tablet 12.5 mg PO QPM 11/15/21 05/10/22 History clopidogrel 75 mg tablet 75 mg PO QAM #90 tabs 02/23/22 05/10/22 Rx metoprolol succinate 25 mg 25 mg PO QAM #180 tabs 02/23/22 05/10/22 Rx tablet,extended release 24 hr atorvastatin 40 mg tablet 40 mg PO QAM #90 tabs 03/30/22 05/10/22 Rx semaglutide (weight loss) 0.5 0.5 mg (0.5 mL) subcut Q7D #2 mL 04/13/22 05/10/22 Rx mg/0.5 mL subcutaneous pen injector (Wegovy) aspirin 81 mg tablet,delayed 81 mg PO DAILY #90 tabs 04/20/22 05/10/22 Rx release (Adult Low Dose Aspirin) warfarin 5 mg tablet 5 mg PO DAILY #35 tabs 05/09/22 05/10/22 Rx hydrocodone 5 mg-acetaminophen 325 1 tab PO Q6H PRN Pain 05/10/22 05/10/22 History mg tablet amoxicillin 500 mg-potassium 1 tab PO BID 10 days #20 tabs 05/17/22 Rx clavulanate 125 mg tablet (Augmentin) Past Med/Surg History Medical History (Updated 05/30/22 @ 07:38 by Rufus Sandhu PA-C) BPH (benign prostatic hyperplasia) CAD (coronary artery disease) 04/2021 STENTS X 2 @ [facility] FOLLOWS W/ [place] Cardiomyopathy, ischemic LVEF 50% to 55% Cerebral atherosclerosis Depression DVT (deep venous thrombosis) 7-8 yrs ago, R leg, possibly d/t travel on extended car trip Dysmetabolic syndrome X Hearing loss Hyperlipidemia Hypertension controlled, stable per pt LVH (left ventricular hypertrophy) moderate Meniere's disease stable, last episode several yrs ago Obesity Osteoarthritis ST elevation (STEMI) myocardial infarction 04/2021 [facility], s/p 2 stents TMJ (temporomandibular joint syndrome) pain, denies clicking or locking Surgical History H/O wisdom tooth extraction History of cardiac cath 04/2021 STENTS X 2 @ [facility] FOLLOWS W/ SYRose MaryMANSKI History of total knee replacement B/L Family History Grandmother Cancer Father Acute myocardial infarction Hypertension Mother Acute myocardial infarction Brother Hypertension Other Myocardial infarction Denies family history of Ovarian cancer Prostate cancer Breast cancer Colorectal cancer Social History Smoking Status: Current some day smoker Tobacco Type: Cigars Cigarettes Per Day: 1 cigar 3 or 4 days per week- ADVISED; Second Hand Exposure: No; Hx Alcohol Use: Yes Alcohol type: wine Hx Substance Use: No Preferred Language: Mongolian Communication Ability: Effective Dedicated Truck Driver Required: No Beliefs That Will Affect Care: None Current Living Situation: Spouse current occupation: Optical Engineer Feels Safe at Home: Yes Dental Care, Regularly: No Physical Activity Frequency: 1-2 Times per Week Seatbelt Use: always Assistive Devices: Cane, Glasses and Hearing Aid - Bilateral Review of Systems Review of Systems: All systems reviewed & are unremarkable except as noted in HPI & below Physical Exam Physical Exam: VITAL SIGNS: Height 174 centimeters. Weight 124.8 kilograms. BMI of 41.2. Temperature 36.3, blood pressure 116/76, pulse 77 and O2 saturati on 98% on room air. GENERAL: Well-developed, well-nourished elderly white male, in no acute distress. Sitting in a chair. Alert and oriented. Obviously uncomfortable. SKIN: Warm and dry with good turgor. No rashes. No ecchymosis. He does have venous stasis changes present on his lower extremities. No open wounds. HEENT: Normocephalic, atraumatic. Eyes: PERRLA. EOMI. Nares and oropharynx exams deferred due to COVID precautions. HEART: RRR. No MGR. LUNGS: Clear to auscultation bilaterally. No crackles, rhonchi or wheezing. Good air movement. ABDOMEN: Obese. Bowel sounds present x4. Soft, nontender. No organomegaly. No masses. MUSCULOSKELETAL: Right hip evaluation reveals no obvious deformity. He has limitations in internal and external rotation secondary to pain. He also has limitations in flexion to around 100 degrees secondary to pain. There is a flexion contracture of approximately 10 degrees. Ambulating today with an antalgic gait. No pain with palpation over his greater trochanter or IT band at the moment. He does describe some soreness with palpation over his quadriceps muscle. NEUROLOGIC: Gross sensation is intact across both lower extremities by soft touch. Peripheral pulses are 1+. Results & Data Results & Data ([facility]) Diagnostic Findings Radiographic imaging previously obtained shows advanced degenerative joint disease of the right hip. Periarticular osteophytes, subchondral sclerosis and joint space narrowing are all present. Code Status & VTE Plan VTE Prophylaxis Plan VTE Prophylaxis will be ordered: Yes
[2022-06-06 05:57] LABS: INR 1.1 (0.9-1.1); Partial Thromboplastin Time 26.2 Seconds (21.0-31.0); Prothrombin Time 11.3 Seconds (9.0-12.0)
[2022-06-06] MEDS ORDERED: LR 60ML/HR IV SCH (06:00)
[2022-06-06] MEDS ORDERED: TRANEXAMIC ACID 1,000 MG x 1 **For Topical Use TOP SCH (06:00)
[2022-06-06] MEDS ORDERED: ROPIVACAINE 0.5% HCL/PF 150 MG, BUPIVACAINE 0.75% MPF 20 ML, EPINEPHrine 0.15 MG, Ketor... INFIL SCH (06:00)
[2022-06-06] MEDS ORDERED: LR 500ML BOLUS, THEN 15ML/HR IV SCH (06:00)
[2022-06-06] MEDS ORDERED: BUPIVACAINE 0.5 % 5 MG/1 ML PF 10ML VIAL ONE (06:25)
[2022-06-06] MEDS ORDERED: ATROPINE SULFATE 0.1 MG/ML 10ML SYR IV PRN (06:27)
[2022-06-06] MEDS ORDERED: ePHEDrine sulfate 50 MG/ML AMP IV PRN (06:27)
[2022-06-06] MEDS ORDERED: ONDANSETRON INJ 2 MG/ML 2 ML VIAL IV PRN ×2 (06:27→10:26)
--- NOTE | 2022-06-06 06:31 | History & Physical Bridge Note ---
Date of Service June 06, 2022 History & Physical Bridge Note I have examined the patient, reviewed the History & Physical and in the interval since the performance of the History & Physical I have noted the following changes of clinical significance: no changes noted
[2022-06-06] MEDS ORDERED: ORTHO JOINT ANESTHETIC ONE (06:37)
[2022-06-06] MEDS ORDERED: fentaNYL citrate 100 MCG/2 ML VIAL ONE ×2 (06:40→08:54)
[2022-06-06] MEDS ORDERED: SCOPOLAMINE 1 MG TDSY TD ONE ×2 (06:40→06:41)
[2022-06-06] MEDS ORDERED: PROPOFOL IV EMULSION 10 MG/ML 20 ML VIAL IV ONE (06:40)
[2022-06-06] MEDS ORDERED: LIDOCAINE 2% MPF LOCAL 5 ML VIAL INFIL ONE (06:40)
[2022-06-06] MEDS ORDERED: MIDAZOLAM HCL 1 MG/ML 2ML VIAL ONE (06:40)
[2022-06-06] MEDS ORDERED: THROMBIN FOR SOLN 20000 UNIT KIT ONE (07:05)
[2022-06-06] MEDS ORDERED: NEOSTIGMINE METHYLSULFATE 1 MG/ML 10ML VIAL ONE (07:14)
[2022-06-06] MEDS ORDERED: ONDANSETRON INJ 2 MG/ML 2 ML VIAL ONE (07:14)
[2022-06-06] MEDS ORDERED: DEXAMETHASONE SOD INJ 4 MG/ML VIAL ONE (07:14)
[2022-06-06] MEDS ORDERED: GLYCOPYRROLATE 0.2 MG/ML VIAL ONE (07:14)
[2022-06-06] MEDS ORDERED: ROCURONIUM BROMIDE 10 MG/ML 5 ML VIAL IV ONE ×2 (07:14→07:48)
[2022-06-06] MEDS ORDERED: diphenhydrAMINE 50 MG/ML VIAL ONE (07:27)
[2022-06-06] MEDS ORDERED: SUGAMMADEX SODIUM 200 MG/2 ML VIAL IV ONE (07:49)
--- NOTE | 2022-06-06 08:56 | Post Operative Brief Note ---
Immediate Post Op Note v1 Date of Surgery June 06, 2022 Pre & Post Diagnosis Operation Date: 06/06/22 07:00 Pre-Op Diagnosis: Right Hip Degenerative Joint Disease Post-Op Diagnosis: Right Hip Degenerative Joint Disease I identified the patient and participated in the time-out.: Yes Procedure Operation Date: 06/06/22 07:00 Actual Procedures p Right Total Hip Arthroplasty--Uncemented(Right) - Jeffrey Mckeon MD Surgeon Jeffrey Mckeon MD Diet Assistant Danny/Rasheeda/Phoebe Estimated Blood Loss 200 Findings Consistent with Post-Op Diagnosis
--- NOTE | 2022-06-06 09:11 | Operative Report ---
Post Operative Report Pre & Post Diagnosis Operation Date: 06/06/22 07:00 Pre-Op Diagnosis: Right Hip Degenerative Joint Disease Post-Op Diagnosis: Right Hip Degenerative Joint Disease I identified the patient and participated in the time-out.: Yes Procedure Operation Date: 06/06/22 07:00 Actual Procedures p Right Total Hip Arthroplasty--Uncemented(Right) - Jeffrey Mckeon MD Surgeon JENNIE Mckeon MD Amusement Ride Inspector Danny/Rasheeda/Phoebe PHAN Estimated Blood Loss 200 Findings Consistent with Post-Op Diagnosis Specimens see operative report Drains none Complications none Disposition Accompanied Patient To Recovery: Yes Indications This 67 year old male presented to the office with complaints of intractable right hip pain. He had tried conservative care measures without improvement. He elected to proceed with surgical intervention after being educated about potential risks and outcomes. Preoperative imaging was obtained. Description of Procedure Patient was taken to the operating room where he was given general anesthesia. He was prepped and draped in the usual sterile fashion. Please see Dr. Mckeon's operative report for specifics of the procedure. I was present for the entire case from initial patient positioning through final wound closure. Assistance was provided in tissue retraction, hemostasis, trial implant placement, final implant placement, and final wound closure. Patient was taken to the recovery room in satisfactory condition. I attest to the content of the Intraoperative Record and any orders documented therein. Any exceptions are noted below.
[2022-06-06] MEDS: fentaNYL citrate 100 MCG/2 ML VIAL IV PRN ×4 (09:20→09:35)
--- NOTE | 2022-06-06 09:25 | Progress Notes ---
SUBJECTIVE: Postop check status post right total hip replacement. The patient is resting comfortabl y in the bed in the PACU. Denies any chest pain, shortness of breath, fever, chills, nausea, vomitin g or headache. OBJECTIVE: Vital signs are stable. He is afebrile. Can follow commands. Can wiggle his toes, dorsiflex and plantarflex his ankle. Can set his quad. Le g lengths were equal. Dressing clean and dry. X-ray is pending. ASSESSMENT AND PLAN: Overall doing well status post noncemented right total hip replacement. Contin ue with postoperative care pathway. Job ID: [id number]
[2022-06-06] MEDS: HYDROmorphone INJ 1 MG/ML SYRINGE IV PRN ×6 (09:40→10:05)
--- NOTE | 2022-06-06 09:45 | Discharge Summary (DS) ---
DATE OF ADMISSION: 06/06/2022. DATE OF POTENTIAL DISCHARGE: 06/07/2022. CHIEF COMPLAINT: Right hip pain. HISTORY OF PRESENT ILLNESS: The patient underwent elective right total hip replacement for severe os teoarthritis. The dual mobility implant was utilized based on poor mobility of his back and signific ant contractures. At this point in time, he understands the risks and consequences. Hospital course to this point has been uneventful. ALLERGIES: REMARKABLE FOR ALLERGY TO SULFA, WHICH PRODUCES A MILD ALLERGY. HOME MEDICATIONS: Include p.r.n. nitroglycerin, losartan, Plavix, metoprolol, atorvastatin, semaglut cayla, aspirin, warfarin, hydrocodone, amoxicillin. That is used for his implants. PAST MEDICAL AND PAST SURGICAL HISTORY: Remarkable for coronary artery disease, BPH, cardiomyopathy, cerebral atherosclerosis, depression, DVT, dysmetabolic syndrome X, hearing loss, hyperlipidemia, hy pertension, LVH, Meniere's disease, obesity, osteoarthritis, ST-elevation myocardial infarction, TMJ, wisdom teeth, cardiac stents, bilateral knee replacements. FAMILY HISTORY: Remarkable for cancer in the family. Grandmother significant for coronary artery di sease throughout the family. SOCIAL HISTORY: Reveals the p.r.n. smoker, cigars. Secondhand exposure, none. P.r.n. alcohol, soci al. Lives with his . REVIEW OF SYSTEMS: Reveals no issues. ASSESSMENT AND PLAN: Doing well, status post right total knee replacement. Continue with care pathw ay. Potential discharge home tomorrow if does well overnight. Job ID: [id number]
--- NOTE | 2022-06-06 09:50 | XRay Report ---
XR pelvis 1-2V routine HISTORY: 67 years-old Male one view AP cristopher centered on hips status post right hip total joint arth roplasty COMPARISON: 02/26/2022 TECHNIQUE: AP view of the pelvis FINDINGS: Right hip total joint arthroplasty demonstrates satisfactory alignment. Partially imaged lateral skin doreen with expected postoperative soft tissue swelling and deep tissue air. Moderate left hip oste oarthritis. No acute fracture or unexpected opaque foreign body. IMPRESSION: Satisfactory alignment of the right hip total joint arthroplasty. ACT 112: Negative or not required by law. The above report was generated using voice recognition software. It may contain grammatical, syntax o r spelling errors. Electronically signed by: Harman Rhodes M.D. 06/06/2022 9:49 AM
[2022-06-06] MEDS ORDERED: oxyCODONE HCL IR 5 MG TAB (IMMEDIATE RELEASE) PO PRN (10:26)
[2022-06-06] MEDS ORDERED: bisacodyL 10 MG SUPP PR PRN (10:26)
[2022-06-06] MEDS ORDERED: TAMSULOSIN HCL 0.4 MG CAP PO PRN (10:26)
[2022-06-06] MEDS ORDERED: NITROGLYCERIN SL 0.4 MG/TAB TAB SL PRN (10:26)
[2022-06-06] MEDS ORDERED: VANCOMYCIN HCL 1,750 MG in SODIUM CHLORIDE 0.9% 250 ML IV ONE (10:26)
[2022-06-06] MEDS ORDERED: MAGNESIUM HYDROXIDE SUSP 30 ML UDC PO PRN (10:26)
[2022-06-06] MEDS ORDERED: METOCLOPRAMIDE HCL INJ 5 MG/ML 2 ML VIAL IV PRN (10:26)
[2022-06-06] MEDS ORDERED: NALOXONE HCL 0.4 MG/1 ML VIAL/CARP IV PRN (10:26)
[2022-06-06] MEDS ORDERED: diphenhydrAMINE 50 MG/ML VIAL IV PRN (10:26)
[2022-06-06] MEDS ORDERED: HYDROmorphone INJ 0.5 MG/0.5 ML SYR IV PRN (10:26)
[2022-06-06] MEDS ORDERED: ALUMINUM/MAGNESIUM SUSP 30 ML UDC PO PRN (10:26)
[2022-06-06] MEDS ORDERED: VANCOMYCIN CONSULT ACTIVE PRN (10:26)
[2022-06-06] MEDS ORDERED: SODIUM CHLORIDE 0.9% 1000ML 1,000 ML IV SCH (11:00)
[2022-06-06] MEDS ORDERED: VANCOMYCIN HCL 1,750 MG in SODIUM CHLORIDE 0.9% 500 ML IV ONE (11:15)
--- NOTE | 2022-06-06 12:02 | Operative Report (OR) ---
DATE OF PROCEDURE: 06/06/2022. SURGEON: Jeffrey Mckeon MD. VICE PRESIDENT COMPLIANCE: Dr. Vanessa, Dr. Delgado and Rufus Sandhu PA-C. PREOPERATIVE DIAGNOSES: Osteoarthritis with end-stage disease, right hip. POSTOPERATIVE DIAGNOSES: Osteoarthritis with end-stage disease, right hip. OPERATION PERFORMED: Noncemented right total hip replacement with dual mobility cup. SUMMARY OF IMPLANTS: Size 50 cup acetabular shell sector hole eliminator, 6.5 x 25 screw, 50 liner for the cup 22.2/43 ball, 22.25+4 head, 2 high offset Tri- Lock again DePuy dual mobility hip replacement. Noncemented. PERIOPERATIVE SITUATION: Medically cleared male with intractable hip pain with end-stage x-rays, has failed conservative management and is requesting total hip replacement. He understands the risks and consequences including infection, leg length inequality, weakness, nerve damage, blood clots, emboli, and . DESCRIPTION OF PROCEDURE: The patient was appropriately identified, site verified, consent verified. Antibiotics were confirmed as being given. The right lower extremity was prepped and draped in usual routine fashion with the patient in left lateral decubitus position. Posterior approach to the hip was made. He is a large man. Appropriate incision was made. Full thickness flaps raised. IT band and gluteus samanta fascia incised. Retractors placed. Care was taken to protect the sciatic nerve. Short external rotators were then released. Capsule was then opened and T'd. The hip was then dislocated. The femoral neck was resected. The acetabulum was quite small for a large amount of significant osteophytes. These were all resected. The labrum was resected. Serial reaming carried up to a 50 and a 50 cup impacted into appropriate anteversion inclination and then secured with additional 6.5 x 25 screw with excellent purchase. A trial liner was then seated. Care was taken to remove all of the tissue around the margin of the cup. The hip was then flexed, internally rotated. The proximal femur prepared with the rongeur, box toe flanger stitchdowns, lateralizing rasp, canal finder, and serial broaching up to a 2. The 2 was impacted into position and trial reduction carried out with excellent leg lengths and stability. The hip was then dislocated. All trial implants were removed. The wound was irrigated with Betadine Pulsavac, and then hole eliminator seated, permanent liner seated, permanent stem and head seated. The hip reduced. It was stable in all planes and the leg lengths were within millimeters of equality. The wound was then irrigated one final time. TXA was bathed in the wound for 2-1/2 to 3 minutes. Due to his Plavix, thrombin was also sprayed into the wound. The wound was then closed with #2 Vicryl for the fascial layers including the piriformis. The remnants of the capsule, gluteus samanta fascia, the IT band and deep fat. Remaining layer was closed after injecting with Orthomix with 2-0 Vicryl and stainless steel clips. Appropriate dressing applied. The patient was transferred to recovery room in satisfactory condition, having tolerated the procedure well. DVT prophylaxis will be with Plavix and aspirin. Bone pathology is pending. Job ID: [id number] [facility]
--- NOTE | 2022-06-06 13:23 | Anesthesiology Progress Note ---
Date of Service June 06, 2022 Anesthesia Post Procedure Vital Signs Vital Signs: Temp Pulse Pulse Resp BP Pulse Ox O2 Del Method 06/06/22 12:25 36.7 C 79 16 156/98 H 93 Room Air 06/06/22 11:25 36.4 C L 70 17 125/72 95 Room Air 06/06/22 10:55 36.6 C 82 16 115/76 93 Room Air 06/06/22 10:45 Room Air 06/06/22 10:26 36.8 C 86 16 125/82 93 Room Air 06/06/22 10:10 36.4 C L 74 15 140/73 97 Nasal Cannula 06/06/22 10:00 76 22 135/74 97 Nasal Cannula 06/06/22 09:30 90 13 153/96 H 100 Room Air 06/06/22 09:50 88 17 138/91 95 Nasal Cannula 06/06/22 09:40 83 11 L 144/88 H 91 Room Air 06/06/22 09:20 95 H 13 119/92 94 Room Air 06/06/22 09:10 36.3 C L 94 H 16 165/95 H 100 Oxymask 06/06/22 05:43 37.1 C 90 20 123/83 96 Room Air O2 Flow Rate 06/06/22 12:25 06/06/22 11:25 06/06/22 10:55 06/06/22 10:45 06/06/22 10:26 06/06/22 10:10 2 06/06/22 10:00 2 06/06/22 09:30 06/06/22 09:50 2 06/06/22 09:40 06/06/22 09:20 06/06/22 09:10 4 06/06/22 05:43 Pain Intensity Right Hip: Pain Intensity: 4 Transfer of Care Handoff Completed per policy Notes Mental Status: alert / awake / arousable and participated in evaluation Patient Amnestic to Procedure: Yes Nausea / Vomiting: adequately controlled Pain: adequately controlled Airway Patency, RR, SpO2: stable & adequate BP & HR: stable & adequate Hydration State: stable & adequate Anesthetic Complications: no major complications apparent and Pt Satisfied with anesthetic care
[2022-06-06] MEDS: ACETAMINOPHEN 500 MG TAB PO SCH ×2 (13:32→22:53)
[2022-06-06] MEDS ORDERED: ORTHO WARFARIN NOMOGRAM SCH (14:00)
[2022-06-06] MEDS: ceFAZolin 2000MG 2,000 MG/15 ML SYR IV SCH ×2 (15:51→22:51)
[2022-06-06] MEDS: FERROUS GLUCONATE 324 MG TAB PO SCH (15:52)
[2022-06-06] MEDS: ASCORBIC ACID 500 MG TAB PO SCH (15:52)
[2022-06-06] MEDS ORDERED: WARFARIN SOD 5 MG TAB PO ONE (16:00)
[2022-06-06] MEDS ORDERED: CHECK SCOPOLAMINE PATCH PLACEMENT SCH (16:00)
[2022-06-06] MEDS: DOCUSATE SODIUM 100 MG CAP PO SCH (20:31)
[2022-06-06] MEDS ORDERED: LOSARTAN POTASSIUM 25 MG TAB PO SCH (21:00)
[2022-06-06] MEDS ORDERED: SENNA 8.6 MG TAB PO SCH (21:00)
[2022-06-07] MEDS: ACETAMINOPHEN 500 MG TAB PO SCH (06:21)
[2022-06-07 06:39] LABS: Basophils # (auto) 0.02 K/uL (0-0.2); Basophils % (auto) 0.2 %; Eosinophils # (auto) 0.01 K/uL (0-0.50); Eosinophils % (auto) 0.1 %; Hemoglobin 11.3 g/dl (14.0-18.0); Immature Granulocytes # (auto) 0.03 K/uL (0.00-0.02); Immature Granulocytes % (auto) 0.2 %; Lymphocytes % (auto) 10.9 %; Mean Corpuscular Hemoglobin 31.4 pg (25.0-34.0); Mean Corpuscular Hgb Conc 32.3 g/dL (32.0-36.0); Mean Corpuscular Volume 97.2 fL (80.0-100.0); Mean Platelet Volume 9.5 fL (9.4-12.4); Monocytes # (auto) 1.16 K/uL (0.24-0.82); Neutrophils % (auto) 79.6 %; Platelet Count 238 K/uL (130-400); RDW Coefficient of Variation 14.7 % (11.5-14.5); RDW Standard Deviation 52.2 fL (36.4-46.3); White Blood Count 12.82 K/ul (4.8-10.8)
--- NOTE | 2022-06-07 06:41 | Progress Notes ---
DATE OF SERVICE: 06/07/2022 SUBJECTIVE: Postop day #1 status post right total hip replacement. The patient is doing well, has no major issues. Denies any chest pain, shortness of breath, fever, chills, nausea, vomiting or headache. OBJECTIVE: VITAL SIGNS: Stable. He is afebrile. NEUROVASCULAR CHECK: Femoral and sciatic nerve is normal. Wound dressing clean, dry and intact. LABORATORY DATA: A.m. labs are pending. ASSESSMENT AND PLAN: Doing well. Discharge home today after seen by PT, OT and case management. Job ID: [id number]
[2022-06-07 06:48] LABS: INR 1.1 (0.9-1.1); Prothrombin Time 11.5 Seconds (9.0-12.0)
[2022-06-07 07:01] LABS: BUN Creatinine Ratio 24.4 (10-20); Calcium 8.8 mg/dl (8.5-10.1); Creatinine Clr Calc Pharmacy 106.5 ml/min; Est GFR (African American) 102.5 ml/min; Est GFR (Non-African American) 88.5 ml/min; Potassium 4.4 mmol/L (3.5-5.1)
[2022-06-07] MEDS ORDERED: dexAMETHasone 10 MG in SYRINGE 0 ML IV SCH (08:00)
[2022-06-07] MEDS: ASCORBIC ACID 500 MG TAB PO SCH (08:02)
[2022-06-07] MEDS: DOCUSATE SODIUM 100 MG CAP PO SCH (08:02)
[2022-06-07] MEDS: FERROUS GLUCONATE 324 MG TAB PO SCH (08:02)
[2022-06-07] MEDS ORDERED: MULTIVITAMIN TAB PO SCH (09:00)
[2022-06-07] MEDS ORDERED: METOPROLOL SUCC 25MG EXT REL TAB PO SCH (09:00)
[2022-06-07] MEDS ORDERED: ATORVASTATIN 40 MG TAB PO SCH (09:00)
[2022-06-07] MEDS ORDERED: ASPIRIN 81 MG ECTAB PO SCH (09:00)
--- NOTE | 2022-06-07 09:27 | Orthopedic Progress Note ---
Date of Service June 07, 2022 Assessment & Plan (1) Status post total hip replacement, right: Plan: Patient's surgical dressing was changed today by me. Prevena wound VAC was placed. He will see me in 1 week in the office for removal. Anticipate discharge to home today after PT/OT. They were waiting for him immediately after his dressing change. Prescription for Percocet was sent to his pharmacy. He already has warfarin at home and will use this postoperatively. We will manage his INR for the first 6 weeks. Resume his Plavix today. Follow-up with me in the office in 2 weeks as scheduled for staple removal. Continue using his walker for ambulation. Written discharge instructions were provided. Admission and Anticipated Discharge Date Admission Date: June 06, 2022 Subjective Patient was seen in his room this morning. He is in good spirits. He has eaten his breakfast. Currently sitting in a bedside chair. States his pain is different than it was preop. He states he has more difficulty getting in and out of a chair, but feels much better when he has up and walking. He denies any chest pain, shortness of breath, nausea, vomiting, abdominal pain, numbness, or tingling. Review of Systems Review of Systems: Unchanged from yesterday. Physical Exam Physical Exam: General: Well-developed, well-nourished, elderly male, in obvious discomfort. No acute distress. Sitting in a bedside chair. Alert and oriented. Conversive. Skin: Warm and dry with good turgor. Postsurgical bandages are in place on the right hip. Upon removal, there is a moderate amount of drainage on the dressings. [place] are intact. Wound edges are well approximated. He has no active bleeding at this time. Musculoskeletal: Patient is able to get himself out of his bedside chair stands with his walker. He has intact active function to the hip, knee, and ankle. Neurologic: Gross sensation is intact across both lower extremities by soft to uch. Results & Data ([facility]) Vital Signs (Past 12 Hours) Vital Signs Temp Pulse Resp BP BP Pulse Ox O2 Del Method 06/07/22 07:10 36.4 C L 80 22 129/74 95 Room Air 06/07/22 03:09 36.5 C 65 18 121/82 96 Room Air 06/06/22 21:51 36.6 C 62 20 116/75 95 Room Air Laboratory Results CBC obtained this morning shows a white count of 12.8, H&H of 11.3 and 35.0 INR is 1.1 normal PRP, and glucose of 119 this morning.
== END 2022-06-07 11:47 | disposition home health service (06) ==
LOC: 3W 05:12 → ASU 05:12